=== PATIENT | female | born 1975 | race Caucasian/White ===

== ENCOUNTER 2022-04-04 15:32 | Outpatient (CLI) | payer OTHER, SELFPAY | END 2022-04-04 15:33 | disposition home or self-care (01) | LOC: NFLDREF 15:33 | PROVIDERS: PCP Family Medicine; Visit Provider Family Medicine | DX: E03.9 Hypothyroidism, unspecified (principal) | CPT/HCPCS: 84443 ==

== ENCOUNTER 2022-04-11 16:06 | Outpatient (CLI) | payer OTHER, SELFPAY ==
[2022-04-11 17:47] LABS: Vitamin D 25 Hydroxy* 20 ng/mL (30-80)
[2022-04-11 18:23] LABS: Vitamin B12* > 1000 pg/mL (243-894)
== END 2022-04-11 16:07 | disposition home or self-care (01) ==
PROVIDERS: PCP Family Medicine; Visit Provider Family Medicine
DX: R79.89 Other specified abnormal findings of blood chemistry (principal); E55.9 Vitamin D deficiency, unspecified; E03.9 Hypothyroidism, unspecified; I10 Essential (primary) hypertension; E78.5 Hyperlipidemia, unspecified; E11.9 Type 2 diabetes mellitus without complications
CPT/HCPCS: 82306; 82607

== ENCOUNTER 2022-05-17 09:07 | Outpatient (CLI) | payer OTHER, SELFPAY | END 2022-05-17 09:08 | disposition home or self-care (01) | PROVIDERS: PCP Family Medicine; Visit Provider Obstetrics & Gynecology | DX: Z01.419 Encounter for gynecological examination (general) (routine) without abnormal findings (principal); E55.9 Vitamin D deficiency, unspecified; I10 Essential (primary) hypertension; E78.5 Hyperlipidemia, unspecified; E11.9 Type 2 diabetes mellitus without complications; E03.9 Hypothyroidism, unspecified; N93.9 Abnormal uterine and vaginal bleeding, unspecified; Z13.9 Encounter for screening, unspecified | CPT/HCPCS: 80053; 80061; 83001; 84443 ==

== ENCOUNTER 2022-05-21 15:48 | Outpatient (CLI) | payer OTHER, SELFPAY ==
--- NOTE | 2022-05-21 16:00 | CRLHL7_ITS ---
For Patients: As a result of the Century Cures Act, medical imaging exams and procedure reports are released immediately into your electronic medical record. You may view this report before your referring provider. If you have questions, please contact your health care provider. CLINICAL HISTORY: AUB TECHNIQUE: Real time, cohen scale images were acquired of the pelvis using a transabdominal and transvaginal approach. Color Doppler analysis was performed of the ovaries. FINDINGS: Uterus measures 8.2 x 3.9 x 4.8 centimeters endometrium measures 3 millimeters and is indistinct. Right fundal fibroid measuring 2.1 centimeter right uterine body fibroid measuring 1.6 centimeters. The right ovary measures 2.9 x 1.8 x 1.4 centimeters. The left ovary measures 4.9 x 4 x 4.7 centimeters. A 4.2 centimeter cyst in the left ovary normal blood flow present IMPRESSION: 1.3 millimeters slightly indistinct endometrial stripe. 2.Uterine fibroids. 3. Benign left ovarian cyst which does not require follow-up Dictated by Taylor Marks MD @ 05/22/2022 9:06:17 AM (Electronically Signed)
== END 2022-05-21 15:49 | disposition home or self-care (01) ==
PROVIDERS: PCP Family Medicine; Visit Provider Obstetrics & Gynecology
DX: N93.9 Abnormal uterine and vaginal bleeding, unspecified (principal); D25.9 Leiomyoma of uterus, unspecified; N83.202 Unspecified ovarian cyst, left side
CPT/HCPCS: 76830; 76856; T1013

== ENCOUNTER 2022-09-27 12:11 | Outpatient (CLI) | payer OTHER, SELFPAY ==
--- NOTE | 2022-09-27 13:38 | W.ANESCHARGE ---
Anesthesia Charges Start Date/Time Anesthesia Start Date: 09/27/22 Anesthesia Start Time: 13:20 Stop Date/Time Anesthesia Stop Date: 09/27/22 Anesthesia Stop Time: 13:40
== END 2022-09-27 12:12 | disposition home or self-care (01) ==
PROVIDERS: PCP Family Medicine; Visit Provider Internal Medicine
DX: Z12.11 Encounter for screening for malignant neoplasm of colon (principal)
CPT/HCPCS: 45378; 812; J2704

== ENCOUNTER 2022-12-27 10:44 | Outpatient (CLI) | payer OTHER, SELFPAY | END 2022-12-27 10:45 | disposition home or self-care (01) | LOC: NFLDREF 12-30 08:44 | PROVIDERS: PCP Family Medicine; Referring Provider Family Medicine; Visit Provider Family Medicine | DX: Z00.00 Encounter for general adult medical examination without abnormal findings (principal); E78.5 Hyperlipidemia, unspecified; E03.9 Hypothyroidism, unspecified; E87.6 Hypokalemia; E11.9 Type 2 diabetes mellitus without complications; I10 Essential (primary) hypertension | CPT/HCPCS: 80053; 80061; 82306; 82607; 84443 ==

== ENCOUNTER 2022-12-30 15:05 | Outpatient (CLI) | payer OTHER, SELFPAY | END 2022-12-30 15:06 | disposition home or self-care (01) | LOC: NFLDREF 15:06 | PROVIDERS: PCP Family Medicine; Visit Provider Family Medicine | DX: Z00.00 Encounter for general adult medical examination without abnormal findings (principal); E55.9 Vitamin D deficiency, unspecified; R74.8 Abnormal levels of other serum enzymes; R35.0 Frequency of micturition; E87.6 Hypokalemia | CPT/HCPCS: 84132; 87086; 87186 ==

== ENCOUNTER 2023-01-29 10:38 | Outpatient (CLI) | payer OTHER, SELFPAY | END 2023-01-29 10:39 | disposition home or self-care (01) | LOC: NFLDREF 01-30 10:15 | PROVIDERS: PCP Family Medicine; Referring Provider Family Medicine; Visit Provider Family Medicine | DX: R74.8 Abnormal levels of other serum enzymes (principal); R79.89 Other specified abnormal findings of blood chemistry | CPT/HCPCS: 82607; 84450; 84460 ==

== ENCOUNTER 2023-04-30 11:11 | Outpatient (CLI) | payer OTHER, SELFPAY | END 2023-04-30 11:12 | disposition home or self-care (01) | PROVIDERS: PCP Family Medicine; Visit Provider Family Medicine | DX: E75 Disorders of sphingolipid metabolism and other lipid storage disorders (principal); R53.1 Weakness; E55.9 Vitamin D deficiency, unspecified | CPT/HCPCS: 80048; 82306 ==

== ENCOUNTER 2023-09-02 14:50 | Outpatient (CLI) | payer OTHER, SELFPAY ==
--- OUTSIDE RECORDS SUMMARY | 2023-09-02 14:52 | XMS_ITS | Clinical Summary ---
Author Organization [facility] Address [place], [place] [address] Care Team Providers Care Frame Repairer Name Role Phone Pcp, No Primary Care Provider Unavailabl e Allergies No known active allergies Medications No known medications Active Problems Problem Noted Date Diagnosed Date Dysmenorrhea 09/17/2012 Mediastinal mass, recheck CT Oct 2012 2 Immunizations Name Administration Dates Next Due Influenza, IIV4 12/08/2015 Td, Preservative Free (age >= 7 Years) 8 Tdap 02/11/2012 Tuberculin (PPD) 03/27/2012 Family History Medical History Relation Name Comments Good Health Brother 9 Good Health Brother 10 Good Health Brother 11 Good Health Brother 12 Good Health Brother 13 Good Health Brother 14 Good Health Brother 15 Good Health Brother 16 Unknown Father he , not sure how or why Unknown Maternal Grandfather Unknown Maternal Grandmother Diabetes Mother Unknown Paternal Grandfather Unknown Paternal Grandmother Cancer Sister 3 pancreas Good Health Sister 4 Relation Name Status Comments Brother 1 Alive Brother 2 Alive Brother 3 Alive Brother 4 Alive Brother 5 Alive Brother 6 Alive Brother 7 Alive Brother 8 Alive Brother 9 Brother 10 Brother 11 Brother 12 Brother 13 Brother 14 Brother 15 Brother 16 Father Maternal Grandfather Maternal Grandmother Mother Alive Paternal Grandfather Paternal Grandmother Sister 1 Alive Sister 2 Alive Sister 3 Sister 4 Social History Tobacco Use Types Packs/Day Years Used Date Smoking Tobacco: Never Smokeless Tobacco: Never Tobacco Cessation:Counseling Given: Yes Alcohol Use Standard Drinks/Week Comments Yes 0 (1 standard drink = 0.6 oz pur e alcohol) rare PHQ-2 Answer Date Recorded PHQ-2 Score 0 04/26/2018 Sex and Gender Information Value Date Recorded Sex Assigned at Not on file Gender Identity Not on file Sexual Orientation Not on file Obstetrics History Para Term AB IAB SAB Ectopic Multiple Livin g Live Births 3 3 3 0 0 0 0 0 0 3 Date Outcome GA Total Labor Labor/2nd/3rd Weight Sex Type Anes PTL Krista A1 A5 Name Clin Term Term Term Last Filed Vital Signs Vital Sign Reading Time Taken Comments Blood Pressure 123/77 09/01/2017 8:23 AM CDT Pulse 69 09/01/2017 8:23 AM CDT Temperature 36.9 ??C (98.5 ??F) 08/22/2017 1:23 PM CD T Respiratory Rate 16 09/28/2011 1:28 PM CDT Oxygen Saturation 96% 09/01/2017 8:23 AM CDT Inhaled Oxygen Concentration - - Weight 81.6 kg (179 lb 12.8 oz) 09/01/2017 8:23 AM CDT Height 158 cm (5' 2.21) 09/01/2017 8:23 AM CDT Body Mass Index 32.67 09/01/2017 8:23 AM CDT Plan of Treatment Health Maintenance Due Date Last Done Comments Hepatitis C screening for age 18-79 05/21/1993 Depression screening for age 12+ 08/08/2018 08/08/2017, 12/08/2015 BMI (ht and wt on same day) for age 18+ 09/01/2018 09/01/2017, 08/22/2017, 08/18/2017, Additional history exists Colonoscopy through age 75 05/21/2020 Mammogram for age 45-75 05/21/2020 12/27/2015 Lipids for age 45-75 12/20/2020 12/21/2015, 11/20/2010, 07/26/2008 Tetanus booster 02/10/2022 02/11/2012, 06/02/2007 COVID-19 vaccine series ( season) 2022 Pap test for age 21-65 10/10/2023 , 10/09/2020, 12/21/2015, Additional history exists Influenza for age 9-49 10/26/2023 12/08/2015 HIV for age 15-65 Completed 06/30/2008 Tdap Completed 02/11/2012 Pneumococcal series for age 6-64 Aged Out No longer eligible based on patient's age to complete this topic Procedures Procedure Name Priority Date/Time Associated Diagnosis Comments IRRIGATION FOREMAN THIN PREP PAP SCREEN IMAGED Routine 10/09/2020 12:00 PM CDT XR MAMMO BILAT SCREEN FFDM (IA) Routine 12/27/2015 4:39 PM CDT Visit for screening mammogram LIPID PANEL W REFLEX MEASURED LDL Routine 12/21/2015 11:24 AM CDT Screening for lipid disorders ANTI HIV 1/2 Routine 06/30/2008 3:02 PM CDT Candidal Vaginitis from Last 3 Months or Most Recently Relevant to Health Maintenance Results * IRRIGATION FOREMAN THIN PREP PAP SCREEN IMAGED (10/09/2020 12:00 PM CDT) Case Report Gynecologic Cytology Report ? Case: [id number] ? Authorizing Provider: ??Vandana Duenas ??Collected: ? 10/09/2020 1200 ? M, MD ? Ordering Location: ? [facility] ?Received: ?10/11/2020 0819 ? First Screen: ?Baccam, Minie ? Rescreen: ?Nicole Mitchell ? Specimen: ?IRRIGATION FOREMAN ThinPrep Vial Screening, Cervical/Vaginal ? 10/25/2020 4:19 PM CDT [facility] INTERPRETATION/ RESULT NEGATIVE FOR INTRAEPITHELIAL LESION OR MALIGNANCY (NIL) (none) 10/25/2020 4:19 PM CDT [facility] IMEN ADEQUACY Satisfactory for evaluation Endocervical component present 10/25/2020 4:19 PM CDT [facility] HPV REQUEST HPV and PAP 10/25/2020 4:19 PM CDT [facility] Additional Information 10/25/2020 4:19 PM T [facility] Comment: Interpreted at [facility] - [address], [place] [address] Automated Review Successful 10/25/2020 4:19 PM T [facility] Comment:Specimen processed s uccessfully by automated caretaker device, ThinPrep Imaging System, [employer] ANCILLARY TESTING IRRIGATION FOREMAN HPV Ordered, Please see separate report 10/25/2020 4:19 PM CDT [facility] Note The pap test is a screening technique, not a diagnostic procedure. It is used primarily to screen for squamous cancers and precursor lesions. Published studies have shown that it is subject to both false negative and false positive results. The pap test should not be used as the sole means to diagnose or exclude pre-malignant and malignant lesions. 10/25/2020 4:19 PM CDT [facility] Other (Cervical/Vagina l) 10/09/2020 12:00 PM CDT 10/11/2020 8:19 AM CDT Vandana Duenas MD PATHOLOGY/ CYTOLOGY [facility] [address] [place] [address], [place] * XR MAMMO BILAT SCREEN FFDM (12/27/2015 4:39 PM CDT) Anatomical Region Laterality Modality BREASTS, Breast Left, Breast Right Bilateral Mammography Impressions 12/28/2015 12:17 PM CDT ??There is no radiographic evidence for malignancy. ??Recommend annual mammograms. A lay language report of this examination will be provided to the patient. MAMMOGRAM ASSESSMENT: ??ACR 2 Benign Narrative 12/28/2015 12:17 PM CDT XR MAMMO BILAT SCREEN FFDM [G0202.0] CLINICAL HISTORY: ??This is an asymptomatic 40 y.o. patient. INDICATION FOR EXAM: Mammogram Screening. TECHNIQUE: CC & MLO views were obtained. ??This digital study was evaluated with the assistance of Computer-Aided Detection. COMPARISON FILMS: This is a baseline study. FINDINGS: ??Mammographically, the breast tissue is heterogeneously dense, which could obscure detection of small masses. ??No suspicious masses or microcalcifications. ??Intramammary lymph node within both breasts. Lorena ARANDA MAMMO * (ABNORMAL) LIPID PANEL W REFLEX MEASURED LDL (12/21/2015 11:24 AM CDT) CHOLESTEROL,TOTAL 238(H) 100 - 199 mg/dL 12/21/2015 12:19 PM CDT [facility] TRIGLYCERIDES 110 <150 mg/dL 12/21/2015 12:19 PM CDT [facility] HDL CHOLESTEROL 50 >40 mg/dL 10/27/201 6 12:19 PM CDT [facility] NON-HDL CHOLESTEROL 188(H) <145 mg/dl 12/21/2015 12:19 PM CDT [facility] CHOL/HDL RATIO 4.76(H) <4.50 12/21/2015 12:19 PM CDT [facility] LDL CHOLESTEROL 166(H) <=130 mg/dL 12/21/2015 12:19 PM CDT [facility] PATIENT STATUS NOT GIVEN 12/21/2015 12:19 PM CDT [facility] Blood BLOOD SPECIMEN / Unknown Venipuncture / Unknown 12/21/2015 11:24 AM CDT 12/21/2015 11:24 AM CDT Lorena Soliz PA CHEMISTRY [facility] [address] [place] [address], * ANTI HIV 1/2 (06/30/2008 3:02 PM CDT) ANTI HIV 1/2 Non-reacti ve [facility] Blood specimen (specimen) BLOOD SPECIMEN / Unknown 06/30/2008 3:02 PM CDT 06/30/2008 2:46 PM CDT Ngozi Ladd VP BUSINESS DEVELOPMENT SEND OUTS [facility] [place]NAL ZIP [id number] [place] [id number] from Last 3 Months or Most Recently Relevant to Health Maintenance Advance Directives * Full Code (Latest Code Status on File) Date Activated Date Inactivated Comments 09/12/2011 4:18 PM 09/13/2011 2:44 PM * Full Code Date Activated Date Inactivated Comments 09/12/2011 8:24 AM 09/12/2011 4:18 PM Care Teams Frame Repairer Relationship Specialty Start Date End Date Pcp, No . PCP - General 04/02/18
== END 2023-09-02 14:51 | disposition home or self-care (01) ==
PROVIDERS: PCP Family Medicine; Visit Provider Family Medicine
DX: E87.6 Hypokalemia (principal); R79.89 Other specified abnormal findings of blood chemistry; E55.9 Vitamin D deficiency, unspecified; E11.9 Type 2 diabetes mellitus without complications; E66.9 Obesity, unspecified; I10 Essential (primary) hypertension; E78.5 Hyperlipidemia, unspecified
CPT/HCPCS: 80048; 84450; 84460

== ENCOUNTER 2024-02-02 11:50 | Outpatient (CLI) | payer OTHER, SELFPAY | END 2024-02-02 11:51 | disposition home or self-care (01) | LOC: NFLDREF 02-05 03:45 | PROVIDERS: PCP Family Medicine; Referring Provider Family Medicine; Visit Provider Family Medicine | DX: E78.5 Hyperlipidemia, unspecified (principal); R73.03 Prediabetes; E55.9 Vitamin D deficiency, unspecified; E03.9 Hypothyroidism, unspecified; R53.83 Other fatigue | CPT/HCPCS: 80053; 80061; 82306; 84439; 84443 ==

== ENCOUNTER 2024-03-29 08:40 | Emergency (ER) | payer OTHER, SELFPAY ==
--- OUTSIDE RECORDS SUMMARY | 2024-03-29 08:45 | XMS_ITS | Referral Summary ---
Author Organization [facility] Address [facility] [place] [address] Care Team Providers Care Illuminator Name Role Phone None, Md Primary Care Provider Unavailabl e Allergies No known active allergies Medications acetaminophen (TYLENOL) 500 mg oral tablet Take 2 tablets (1,000 mg) by mouth every 6 (six) hours. 30 tablet 11/28/2020 11:24 AM CDT 11/28/2020 Active enoxaparin (LOVENOX) 40 mg/0.4 mL SubQ injection Inject 0.4 mL (40 mg) under the skin every 24 (twenty-four) hours. 21 Syringe 11/28/2020 11:24 AM CDT 11/29/2020 Active oxyCODONE, immediate release, (ROXICODONE) 5 mg oral tablet Take 1 tablet (5 mg) by mouth every four (4) to six (6) hours as needed. 20 tablet 11/28/2020 11:24 AM CDT 11/28/2020 Active ondansetron (ZOFRAN) 4 mg oral ODT Dissolve 1 tablet (4 mg) in mouth every 8 (eight) hours as needed for nausea. 10 tablet 11/28/2020 11:24 AM CDT 11/28/2020 Active polyethylene glycol (MIRALAX) 17 gram oral packet Take 17 g by mouth once daily. Mix each dose in 4-8 ounces of liquid as directed. 0 11/29/2020 Active senna-docusate (SENNA-S) 8.6-50 mg oral tablet Take 1-2 tablets by mouth twice a day. 20 tablet 11/28/2020 11:24 AM CDT 11/28/2020 Active Active Problems Problem Noted Date Diagnosed Date Fall down stairs 11/27/2020 UTI (urinary tract infection) 11/27/2020 Hypokalemia 11/27/2020 Displaced fracture of latera l condyle of left femur, initial encounter for closed fracture 11/26/2020 Dysmenorrhea 09/17/2012 Mediastinal mass 12/05/2011 Social History Tobacco Use Types Packs/Day Years Used Date Smoking Tobacco: Never Alcohol Use Standard Drinks/Week Comments Not Currently 0 (1 standard drink = 0.6 oz pur e alcohol) Comments Unknown Sex and Gender Information Value Date Recorded Sex Assigned at Not on file Legal Sex Female 1:11 PM CDT Gender Identity Not on file Sexual Orientation Not on file Last Filed Vital Signs Vital Sign Reading Time Taken Comments Blood Pressure 119/57 11/28/2020 2:26 PM CDT Pulse 75 11/28/2020 2:26 PM CDT Temperature 36.9 C (98.5 F) 11/28/2020 2:26 PM CDT Respiratory Rate 18 11/28/2020 2:26 PM CDT Oxygen Saturation 96% 11/28/2020 2:26 PM CDT Inhaled Oxygen Concentration - - Weight 83.9 kg (185 lb) 11/27/2020 12:53 PM CDT Height 160 cm (5' 3) 11/27/2020 12:53 PM CDT Body Mass Index 32.77 11/27/2020 12:53 PM CDT Plan of Treatment Not on file Medical Devices Implanted Type Area Japanese Interpreter Device Identifier Shelf Expiration Date Model / Serial / Lot Pltsynt-Clvr 02/27/68/6h 241.361 - [id number] Implanted:Qty : 1 on 11/27/2020 at [facility] Plate Left: Femur Synthes 241.361 / / Scr Syn Crtx S/T3.5/38 204.838 - [id number] Implanted:Qty : 2 on 11/27/2020 at [facility] Screw/Anc hor Left: Femur Synthes 204.838 / / Scr Evos Mini Bn 18mm 2.4mm - [id number] Implanted:Qty : 1 on 11/27/2020 by Ngozi Cotto MD at [facility] Screw/Anc hor Left: Femur [employer] [id number] / / Scr Evos Mini Bn 26mm 2.4mm - [id number] Implanted:Qty : 2 on 11/27/2020 by Ngozi Cotto MD at [facility] Screw/Anc hor Left: Femur [employer] [id number] / / Scr Evos Mini Bn 60mm 2.4mm - [id number] Implanted:Qty : 1 on 11/27/2020 by Ngozi Cotto MD at [facility] Screw/Anc hor Left: Femur [employer] [id number] / / Scr Evos Bn 46mm 2.7mm T8 Drvr - [id number] Implanted:Qty : 2 on 11/27/2020 by Ngozi Cotto MD at [facility] Screw/Anc hor Left: Femur [employer] [id number] / / Scr Evos Mini Bn 65mm 2.4mm - [id number] Implanted:Qty : 1 on 11/27/2020 by Ngozi Cotto MD at [facility] Screw/Anc hor Left: Femur [employer] [id number] / / Scrsynlckstdr v3.5/20 212.106 - [id number] Implanted:Qty : 1 on 11/27/2020 at [facility] Screw/Anc hor Left: Femur [employer]ynthes 212.106 / / Evos 2.4mm Flex Plate 8 Hole Implanted:Qty : 1 on 11/27/2020 by Ngozi Cotto MD at [facility] Left: Femur [employer] [id number] / / Explanted Type Area Japanese Interpreter Device Identifier Shelf Expiration Date Model / Serial / Lot Plt Evos Mini Bn 70x7.5x1.4mm - [id number] Implanted:Ngozi Gaines MD (Quantity not on file) Explanted:Qty : 1 on 11/27/2020 by Ngozi Cotto MD at [facility] Plate Left: Femur [employer] [id number] / / Scr Evos Mini Bn 75mm 2.4mm - [id number] Implanted:Ngozi Gaines MD (Quantity not on file) Explanted:Qty : 1 on 11/27/2020 by Ngozi Cotto MD at [facility] Screw/Anc hor Left: Femur [employer] [id number] / / Insurance [facility] Advance Directives For more information, please contact: [phone] * Full Code (Latest Code Status on File) Date Activated Date Inactivated Comments 11/26/2020 9:08 PM 11/29/2020 2:19 AM Question Answer Comments How was code status determined? Physician Radha gee Care Teams Illuminator Relationship Specialty Start Date End Date Md Yash PCP - General 11/26/20
--- OUTSIDE RECORDS SUMMARY | 2024-03-29 08:45 | XMS_ITS | Clinical Summary ---
Author Organization [facility] Address [address] [place] [id number] Care Team Providers Care Network Announcer Name Role Phone None, Md Primary Care [...] 11/27/2020 12:53 PM CDT Plan of Treatment Health Maintenance Due Date Last Done Comments Colonoscopy 1975 Hepatitis C Screening 1975 Lipid Screening 1975 Mammogram Screening 1975 Pap Smear 1975 Anxiety Screening (LURDES-2) 05/21/1976 Depression Assessment (PHQ-2) 05/21/1976 Adult Tetanus Booster 02/10/2022 02/11/2012 COVID-19 Vaccine ( - 2023-2 5 season) 2023 Influenza Vaccine (#1) 2023 12/08/2015 RSV Vaccines (1 - 1-dose 75+ series) 05/21/2050 Pneumococcal Vaccine Aged Out No long er eligible based on patient's age to complete this topic Medical Devices Implanted Type Area Supervisory Air Intercept Controller Device Identifier Shelf Expiration Date Model / Serial / Lot Pltsynt-Clvr 1/3/69/6h 241.361 - [id number] Implanted:Qty : 1 on 11/27/2020 at [facility] Plate Left: Femur [employer]ynthes 241.361 / / Scr Syn Crtx S/T3.5/38 204.838 - [id number] Implanted:Qty : 2 on 11/27/2020 at [facility] Screw/Anc hor Left: Femur [employer]ynthe[employer] 204.838 / / Scr Evos Mini Bn 18mm 2.4mm - [id number] Implanted:Qty : 1 on 11/27/2020 by Ngozi Cotto MD at [facility] Screw/Anc hor Left: Femur [employer] [id number] / / Scr Evos Mini Bn 26mm 2.4mm - [id number] Implanted:Qty : 2 on 11/27/2020 by Ngozi Cotto MD at [facility] Screw/Anc hor Left: Femur [employer] [id number] / / Scr Evos Mini Bn 60mm 2.4mm - [id number] Implanted:Qty : 1 on 11/27/2020 by Ngozi Cotto MD at [facility] Screw/Anc hor Left: Femur [employer] [id number] / / Scr Evos Bn 46mm 2.7mm T8 Drvr - [id number] Implanted:Qty : 2 on 11/27/2020 by Ngozi Cotto MD at [facility] Screw/Anc hor Left: Femur [employer] [id number] / / Scr Evos Mini Bn 65mm 2.4mm - [id number] Implanted:Qty : 1 on 11/27/2020 by Ngozi Cotto MD at [facility] Screw/Anc hor Left: Femur [employer] [id number] / / Scrsynlckstdr v3.5/20 212.106 - [id number] Implanted:Qty : 1 on 11/27/2020 at [facility] Screw/Anc hor Left: Femur [employer] 212.106 / / Evos 2.4mm Flex Plate 8 Hole Implanted:Qty : 1 on 11/27/2020 by Ngozi Cotto MD at [facility] Left: Femur [employer] [id number] / / Explanted Type Area Supervisory Air Intercept Controller Device Identifier Shelf Expiration Date Model / Serial / Lot Plt Evos Mini Bn 70x7.5x1.4mm - [id number] Implanted:Ngozi Gaines MD (Quantity not on file) Explanted:Qty : 1 on 11/27/2020 by Ngozi Cotto MD at [facility] Plate Left: Femur [employer] [id number] / / Scr Evos Mini Bn 75mm 2.4mm - [id number] Implanted:Ngozi Gaines MD (Quantity not on file) Explanted:Qty : 1 on 11/27/2020 by Ngozi Cotto MD at [facility] Screw/Anc hor Left: Femur [employer] [id number] / / Insurance [facility] Advance Directives For more information, please contact: [phone] * Full Code (Latest Code Status on File) Date Activated Date Inactivated Comments 11/26/2020 9:08 PM 11/29/2020 2:19 AM Question Answer Comments How was code status determined? Physician Radha upd Care Teams Network Announcer Relationship Specialty Start Date End Date None, PCP - General 11/26/20
--- OUTSIDE RECORDS SUMMARY | 2024-03-29 08:45 | XMS_ITS | Clinical Summary ---
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 Not on file Not on file Not on file Obstetrics History Para Term [...] 69 09/01/2017 8:23 AM CDT Temperature 36.9 C (98.5 F) 08/22/2017 1:23 PM CDT Respiratory Rate 16 09/28/2011 1:28 PM CDT [...] 11/20/2010, 07/26/2008 Tetanus booster 02/10/2022 02/11/2012, 06/02/2007 Pap test for age 21-65 10/10/2023 , 10/09/2020, 12/21/2015, Additional history exists COVID-19 vaccine series (2023- season) 2023 Influenza for age 9-49 10/26/2023 12/08/2015 HIV for age 15-65 Completed 06/30/2008 Tdap Completed 02/11/2012 Pneumococcal series for age 6-49 Aged Out No longer eligible based on patient's age to complete this topic Procedures Procedure Name Priority Date/Time Associated Diagnosis Comments BIOPROCESS ENGINEER THIN PREP PAP SCREEN IMAGED Routine 10/09/2020 12:00 PM CDT XR MAMMO BILAT SCREEN FFDM (IA) Routine 12/27/2015 4:39 PM CDT Visit for screening mammogram LIPID PANEL W REFLEX MEASURED LDL Routine 12/21/2015 11:24 AM CDT Screening for lipid disorders ANTI HIV 1/2 Routine 06/30/2008 3:02 PM CDT Candidal Vaginitis from Last 3 Months or Most Recently Relevant to Health Maintenance Results * BIOPROCESS ENGINEER THIN PREP PAP SCREEN IMAGED (10/09/2020 12:00 PM CDT) Case Report Gynecologic Cytology Report Case: [id number] Authorizing Provider: Vandana Duenas Collected: 10/09/2020 1200 MMD Ordering Location: [facility] Received: 10/11/2020 0819 First Screen: Baccam, Minie Rescreen: Nicole Mitchell Specimen: BIOPROCESS ENGINEER ThinPrep Vial Screening, Cervical/Vaginal 10/25/2020 4:19 PM CDT [facility] ENTRAL LABORATORY INTERPRETATION/ RESULT NEGATIVE FOR INTRAEPITHELIAL LESION OR MALIGNANCY (NIL) (none) 10/25/2020 4:19 PM CDT [facility]-C ENTRAL LABORATORY IMEN ADEQUACY Satisfactory for evaluation Endocervical component present 10/25/2020 4:19 PM [facility]T [facility] HPV REQUEST HPV and PAP 10/25/2020 4:19 PM CDT [facility] Additional Information 10/25/2020 4:19 PM CDT [facility] Comment: Interpreted at [email or web address], Central Laboratory - [address], [place] [address] Automated Review Successful 10/25/2020 4:19 PM CDT [facility]OR[facility]- ENTRAL LABORATORY Comment:Specimen processed s uccessfully by automated neck cutter device, ThinPrep Imaging System, [employer] ANCILLARY TESTING BIOPROCESS ENGINEER HPV Ordered, Please see separate report 10/25/2020 4:19 PM CDT [facility]- ENTRSD LABORATORY Note The pap test is a [...] and malignant lesions. 10/25/2020 4:19 PM CDT [facility] ENTRSD LABORATORY Other (Cervical/Vagina l) 10/09/2020 12:00 PM CDT 10/11/2020 8:19 AM CDT us Vandana Duenas MD PATHOLOGY/CYTOLOGY Final Result [facility] [address] [place] [address], [place] * XR MAMMO BILAT SCREEN FFDM (12/27/2015 4:39 PM CDT) Anatomical Region Laterality Modality BREASTS, Breast Left, Breast Right Bilateral Mammography Impressions 12/28/2015 12:17 PM CDT There is no radiographic evidence for malignancy. Recommend annual mammograms. A lay language report of this examination will be provided to the patient. MAMMOGRAM ASSESSMENT: ACR 2 Benign Narrative 12/28/2015 12:17 PM CDT XR MAMMO BILAT SCREEN FFDM [G0202.0] CLINICAL HISTORY: This is an asymptomatic 40 y.o. patient. INDICATION FOR EXAM: Mammogram Screening. TECHNIQUE: CC & MLO views were obtained. This digital study was evaluated with the assistance of Computer-Aided Detection. COMPARISON FILMS: This is a baseline study. FINDINGS: Mammographically, the breast tissue is heterogeneously dense, which could obscure detection of small masses. No suspicious masses or microcalcifications. Intramammary lymph node within both breasts. Lorena ARANDA MAMMO Final Resu lt * (ABNORMAL) LIPID PANEL W REFLEX MEASURED LDL (12/21/2015 11:24 AM CDT) CHOLESTEROL,TOTAL 238(H) 100 - 199 mg/dL 12/21/2015 12:19 PM CDT [facility] TRIGLYCERIDES 110 <150 mg/dL 12/21/2015 12:19 PM CDT [facility] HDL CHOLESTEROL 50 >40 mg/dL 6 12:19 PM CDT [facility] NON-HDL CHOLESTEROL 188(H) <145 mg/dl 12/21/2015 12:19 PM CDT [facility] CHOL/HDL RATIO 4.76(H) <4.50 12/21/2015 12:19 PM CDT [facility] LDL CHOLESTEROL 166(H) <=130 mg/dL 12/21/2015 12:19 PM CDT [facility] PATIENT STATUS NOT GIVEN 12/21/2015 12:19 PM CDT [facility] Blood BLOOD SPECIMEN / Unknown Venipuncture / Unknown 12/21/2015 11:24 AM CDT 12/21/2015 11:24 AM CDT Lorena ARANDA CHEMISTRY Final Resu lt [facility] [address] [place] [address], [place] [phone] * ANTI HIV 1/2 (06/30/2008 3:02 PM CDT) ANTI HIV 1/2 Non-reacti ve [facility] Blood specimen (specimen) BLOOD SPECIMEN / Unknown 06/30/2008 3:02 PM CDT 06/30/2008 2:46 PM CDT Ngozi Ladd MANAGER OF REVENUE SEND OUTS Final R esult [facility] LAB[facility] INTERNAL ZIP [id number] [address] from Last 3 Months or Most Recently Relevant to Health Maintenance Advance Directives * Full Code (Latest Code Status on File) Date Activated Date Inactivated Comments 09/12/2011 4:18 PM 09/13/2011 2:44 PM * Full Code Date Activated Date Inactivated Comments 09/12/2011 8:24 AM 09/12/2011 4:18 PM Care Teams Hair Cutter Relationship Specialty Start Date End Date Pcp, No . PCP - General 04/02/18
[2024-03-29 08:46] VITALS: BP 131/85; PULSE 75; RESP 18; TEMP 36.9; O2SAT 97; BMI 36.9
--- NOTE | 2024-03-29 09:06 | CRLHL7_ITS ---
For Patients: As a result of the Cures Act, medical imaging exams and procedure reports are released immediately into your electronic medical record. You may view this report before your referring provider. If you have questions, please contact your health care provider. Indication: FALL AND PAIN Technique: Three views of the right hand. Comparison: None. Findings: No acute displaced fracture or malalignment. Mild degenerative changes of the radiocarpal joint. Impression: No acute displaced fracture or malalignment. Dictated by Brian Coker MD @ 03/29/2024 10:02:48 AM (Electronically Signed)
--- NOTE | 2024-03-29 09:06 | CRLHL7_ITS ---
For Patients: As a result of the Cures Act, medical imaging exams and procedure reports are released immediately into your electronic medical record. You may view this report before your referring provider. If you have questions, please contact your health care provider. Indication: FALL AND KNEE PAIN Technique: Three views of the left knee. Comparison: 11/26/2020. Findings: Postsurgical changes from open reduction and internal fixation of the distal femur. No acute fracture or hardware complication. Moderate degenerative changes of the patellofemoral compartment. Moderate knee joint effusion. Impression: Postsurgical changes from open reduction and internal fixation of the distal femur. No acute fracture or hardware complication. Moderate degenerative changes of the patellofemoral compartment. Moderate knee joint effusion. Dictated by Brian Coker MD @ 03/29/2024 10:04:44 AM (Electronically Signed)
--- NOTE | 2024-03-29 09:06 | CRLHL7_ITS ---
For Patients: As a result of the Cures Act, medical imaging exams and procedure reports are released immediately into your electronic medical record. You may view this report before your referring provider. If you have questions, please contact your health care provider. Indication: Fall on outstretched hand Technique: Right wrist 3 view Comparison: None Findings: Bones: No acute fracture or dislocation. Positive ulnar variance. Lucent lesion with sclerotic rim in the scaphoid. Joint spaces: Unremarkable. Soft tissues: Unremarkable. Impression: No acute fracture or dislocation. 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 Positive ulnar variance, which increases risk for ulnar impaction syndrome. Dictated by Vicenta Vilchis MD @ 03/29/2024 10:01:50 AM (Electronically Signed)
--- NOTE | 2024-03-29 09:06 | CRLHL7_ITS ---
For Patients: As a result of the Century Cures Act, medical imaging exams and procedure reports are released immediately into your electronic medical record. You may view this report before your referring provider. If you have questions, please contact your health care provider. Indication: Right ankle pain. Technique: Right ankle 3 views. Comparison: None. Findings: Bones: Small ossific fragments at the lateral malleolus. Ankle mortise is congruent on these nonweightbearing radiographs. Plantar calcaneal enthesophyte. Joint spaces: Joint spaces are well maintained. No degenerative changes. Soft tissues: Moderate soft tissue swelling along the lateral malleolus. Impression: Avulsion fracture the lateral malleolus (Hood A) with moderate soft tissue swelling. Dictated by Vicenta Vilchis MD @ 03/29/2024 10:03:57 AM (Electronically Signed)
--- OUTSIDE RECORDS SUMMARY | 2024-03-29 09:16 | XMS_ITS | Referral Summary ---
Author Organization [facility] Address [facility] [place] [address] Care Team Providers Care Software Client Architect Name Role Phone None, Md Primary Care [...] on file Medical Devices Implanted Type Area Loading Machine Operator Helper Device Identifier Shelf Expiration Date Model / Serial / Lot Pltsynt-Clvr 02/27/68/6h 241.361 - [id number] Implanted:Qty : 1 on 11/27/2020 at [facility] Plate Left: Femur [employer]ynthes 241.361 / / Scr Syn Crtx S/T3.5/38 204.838 - [id number] Implanted:Qty : 2 on 11/27/2020 at [facility] Screw/Anc hor Left: Femur Synthes 204.838 / / Scr Evos Mini Bn 18mm 2.4mm - [id number] Implanted:Qty : 1 on 11/27/2020 by Ngozi Cotto MD at [facility] Screw/Anc hor Left: Femur [employer] [id number] / / Scr Evos Mini Bn 26mm 2.4mm - [id number] Implanted:Qty : 2 on 11/27/2020 by Ngozi Cotto MD at [facility] Screw/Anc hor Left: Femur [employer] [id number] / / Scr Evos Mini Bn 60mm 2.4mm - [id number] Implanted:Qty : 1 on 11/27/2020 by Ngozi Cotto MD at [facility] Screw/Anc hor Left: Femur [employer] [id number] / / Scr Evos Bn 46mm 2.7mm T8 Drvr - [id number] Implanted:Qty : 2 on 11/27/2020 by Ngozi Cotto MD at [facility] Screw/Anc hor Left: Femur [employer] [id number] / / Scr Evos Mini Bn 65mm 2.4mm - [id number] Implanted:Qty : 1 on 11/27/2020 by Ngozi Cotto MD at [facility] Screw/Anc hor Left: Femur [employer] [id number] / / Scrsynlckstdr v3.5/20 212.106 - [id number] Implanted:Qty : 1 on 11/27/2020 at [facility] Screw/Anc hor Left: Femur [employer]ynthes 212.106 / / Evos 2.4mm Flex Plate 8 Hole Implanted:Qty : 1 on 11/27/2020 by Ngozi Cotto MD at [facility] Left: Femur [employer] [id number] / / Explanted Type Area Loading Machine Operator Helper Device Identifier Shelf Expiration Date Model / Serial / Lot Plt Evos Mini Bn 70x7.5x1.4mm - [id number] Implanted:Ngozi Gaines MD (Quantity not on file) Explanted:Qty : 1 on 11/27/2020 by Ngozi Cotto MD at [facility] Plate Left: Femur [employer] [id number] / / Scr Evos Mini Bn 75mm 2.4mm - [id number] Implanted:Ngozi Gaines MD (Quantity not on file) Explanted:Qty : 1 on 11/27/2020 by Ngozi Cotto MD at [facility] Screw/Anc hor Left: Femur [employer] [id number] / / Insurance [facility] Advance Directives For more information, please contact: [phone] * Full Code (Latest Code Status on File) Date Activated Date Inactivated Comments 11/26/2020 9:08 PM 11/29/2020 2:19 AM Question Answer Comments How was code status determined? Physician Radha gee Care Teams Software Client Architect Relationship Specialty Start Date End Date Md Yash PCP - General 11/26/20
--- OUTSIDE RECORDS SUMMARY | 2024-03-29 09:16 | XMS_ITS | Clinical Summary ---
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 Gender Identity Not on file Sexual Orientation [...] Procedure Name Priority Date/Time Associated Diagnosis Comments TRADE RECRUITER THIN PREP PAP SCREEN IMAGED Routine 10/09/2020 12:00 PM CDT XR MAMMO BILAT SCREEN FFDM (IA) Routine 12/27/2015 4:39 PM CDT Visit for screening mammogram LIPID PANEL W REFLEX MEASURED LDL Routine 12/21/2015 11:24 AM CDT Screening for lipid disorders ANTI HIV 1/2 Routine 06/30/2008 3:02 PM CDT Candidal Vaginitis from Last 3 Months or Most Recently Relevant to Health Maintenance Results * TRADE RECRUITER THIN PREP PAP SCREEN IMAGED (10/09/2020 12:00 PM CDT) Case Report Gynecologic Cytology Report Case: [id number] Authorizing Provider: Vandana Duenas Collected: 10/09/2020 1200 MMD Ordering Location[facility] Received: 10/11/2020 0819 First Screen: Baccam, Minie Rescreen: Nicole Mitchell Specimen: TRADE RECRUITER ThinPrep Vial Screening, Cervical/Vaginal 10/25/2020 4:19 PM CDT [facility] LABORAT[facility]-C ENTRAL LABORATORY INTERPRETATION/ RESULT NEGATIVE FOR INTRAEPITHELIAL LESION OR MALIGNANCY (NIL) (none) 10/25/2020 4:19 PM CDT [email or web address]-C ENTRAL LABORATORY IMEN ADEQUACY Satisfactory for evaluation Endocervical component present 10/25/2020 4:19 PM CDT [facility] HPV REQUEST HPV and PAP 10/25/2020 4:19 PM CDT [facility] Additional Information 10/25/2020 4:19 PM CDT [facility] LAB[facility]AT[facility] Comment: Interpreted at [employer], Central Laboratory - [address], [place] [address] Automated Review Successful 10/25/2020 4:19 PM CDT [email or web address]ORAT[facility]- ENTRAL LABORATORY Comment:Specimen processed s uccessfully by automated indexer device, ThinPrep Imaging System, [employer] ANCILLARY TESTING TRADE RECRUITER HPV Ordered, Please see separate report 10/25/2020 4:19 PM CDT [facility]- ENTRNY LABORATORY Note The pap test is a [...] and malignant lesions. 10/25/2020 4:19 PM CDT [facility] ENTR[facility] LABORATORY Other (Cervical/Vagina l) 10/09/2020 12:00 PM CDT 10/11/2020 8:19 AM CDT us Vandana Duenas MD PATHOLOGY/CYTOLOGY Final Result [facility] [address] [place] [address], [place] * XR MAMMO BILAT SCREEN FFDM [...] - 199 mg/dL 12/21/2015 12:19 PM CDT [facility] TRIGLYCERIDES 110 <150 mg/dL 12/21/2015 12:19 PM CDT [facility] HDL CHOLESTEROL 50 >40 mg/dL 6 12:19 PM CDT [facility] NON-HDL CHOLESTEROL 188(H) <145 mg/dl 12/21/2015 12:19 PM CDT [facility] CHOL/HDL RATIO 4.76(H) <4.50 12/21/2015 12:19 PM CDT [facility] LDL CHOLESTEROL 166(H) <=130 mg/dL 12/21/2015 12:19 PM CDT [facility] PATIENT STATUS NOT GIVEN 12/21/2015 12:19 PM CDT [facility] Blood BLOOD SPECIMEN / Unknown Venipuncture / Unknown 12/21/2015 11:24 AM CDT 12/21/2015 11:24 AM CDT Lore[facility] ARANDA CHEMISTRY Final Resu lt [facility] [address] [place] [address], [place] [phone] * ANTI HIV 1/2 (06/30/2008 3:02 PM CDT) ANTI HIV 1/2 Non-reacti ve [facility] Blood specimen (specimen) BLOOD SPECIMEN / Unknown 06/30/2008 3:02 PM CDT 06/30/2008 2:46 PM CDT Ngozi Ladd TREASURY DIRECTOR SEND OUTS Final R esult [facility] LAB[facility]ORY INTERNAL ZIP [id number] [address] from Last 3 Months or Most Recently Relevant to Health Maintenance Advance Directives * Full Code (Latest Code Status on File) Date Activated Date Inactivated Comments 09/12/2011 4:18 PM 09/13/2011 2:44 PM * Full Code Date Activated Date Inactivated Comments 09/12/2011 8:24 AM 09/12/2011 4:18 PM Care Teams Logger Relationship Specialty Start Date End Date Pcp, No . PCP - General 04/02/18
--- OUTSIDE RECORDS SUMMARY | 2024-03-29 09:16 | XMS_ITS | Clinical Summary ---
Author Organization [facility] Address [address] [place] [address] Care Team Providers Care Playroom Attendant Name Role Phone None, Md Primary Care [...] this topic Medical Devices Implanted Type Area Motor Express Clerk Device Identifier Shelf Expiration Date Model / Serial / Lot Pltsynt-Clvr 1/3/69/6h 241.361 - [id number] Implanted:Qty : 1 on 11/27/2020 at [facility] Plate Left: Femur [employer] 241.361 / / Scr Syn Crtx S/T3.5/38 204.838 - [id number] Implanted:Qty : 2 on 11/27/2020 at [facility] Screw/Anc hor Left: Femur [employer] 204.838 / / Scr Evos Mini Bn 18mm 2.4mm - [id number] Implanted:Qty : 1 on 11/27/2020 by Ngozi Cotto MD at [facility] Screw/Anc hor Left: Femur [employer] [id number] / / Scr Evos Mini Bn 26mm 2.4mm - [id number] Implanted:Qty : 2 on 11/27/2020 by Ngozi Cotto MD at [facility] Screw/Anc hor Left: Femur [employer] [id number] / / Scr Evos Mini Bn 60mm 2.4mm - [id number] Implanted:Qty : 1 on 11/27/2020 by Ngozi Cotto MD at [facility] Screw/Anc hor Left: Femur [employer] [id number] / / Scr Evos Bn 46mm 2.7mm T8 Drvr - [id number] Implanted:Qty : 2 on 11/27/2020 by Ngozi Cotto MD at [facility] Screw/Anc hor Left: Femur [employer] [id number] / / Scr Evos Mini Bn 65mm 2.4mm - [id number] Implanted:Qty : 1 on 11/27/2020 by Ngozi Cotto MD at [facility] Screw/Anc hor Left: Femur [employer] [id number] / / Scrsynlckstdr v3.5/20 212.106 - [id number] Implanted:Qty : 1 on 11/27/2020 at [facility] Screw/Anc hor Left: Femur [employer] 212.106 / / Evos 2.4mm Flex Plate 8 Hole Implanted:Qty : 1 on 11/27/2020 by Ngozi Cotto MD at [facility] Left: Femur [employer] [id number] / / Explanted Type Area Motor Express Clerk Device Identifier Shelf Expiration Date Model / Serial / Lot Plt Evos Mini Bn 70x7.5x1.4mm - [id number] Implanted:Ngozi Gaines MD (Quantity not on file) Explanted:Qty : 1 on 11/27/2020 by Ngozi Cotto MD at [facility] Plate Left: Femur [employer] [id number] / / Scr Evos Mini Bn 75mm 2.4mm - [id number] Implanted:Ngozi Gaines MD (Quantity not on file) Explanted:Qty : 1 on 11/27/2020 by Ngozi Cotto MD at [facility] Screw/Anc hor Left: Femur [employer] [id number] / / Insurance [facility] Advance Directives For more information, please contact: [phone] * Full Code (Latest Code Status on File) Date Activated Date Inactivated Comments 11/26/2020 9:08 PM 11/29/2020 2:19 AM Question Answer Comments How was code status determined? Physician Radha upd Care Teams Playroom Attendant Relationship Specialty Start Date End Date None, PCP - General 11/26/20
--- NOTE | 2024-03-29 09:30 | ED.FALL ---
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 She is able to walk and bear weight although it is hurts the most seemingly on her right ankle. She has small abrasions over her knees bilaterally and her right hand over the 4th and 5th PIP joints. No loss of consciousness, no complaints of headache or neck pain. Presents here for evaluation did take some Tylenol this morning. Requesting a note for work. No numbness tingling or weakness noted, she does have a history of left knee previous surgery with screws in her left knee. She did tell the nurse that she was worried about a blood clot MD complaint: fall Severity: moderate Associated symptoms (after fall): denies Related Data Previous Rx's ?Medication ?Instructions ?Recorded Blood Glucose Meter #1 ea 04/30/23 Diabetic Test Strips #100 ea 04/30/23 lancets 28 gauge (CareTouch Safety #100 ea 04/30/23 Lancets) chlorthalidone 25 mg tablet 12.5 mg (1/2 x 25 mg) PO QDAY #45 02/04/24 tabs cholecalciferol (vitamin D3) 50 50 mcg PO QDAY #90 caps 02/04/24 mcg (2,000 unit) capsule ergocalciferol (vitamin D2) 1,250 1,250 mcg PO QWEEK #8 caps 02/04/24 mcg (50,000 unit) capsule potassium chloride 10 mEq 10 meq PO QDAY #90 tabs 02/04/24 tablet,extended release terbinafine HCl 250 mg tablet 250 mg PO QDAY #84 tabs 02/04/24 Allergies Allergy/AdvReac Type Severity Reaction Status Date / Time No Known Allergies Allergy Unknown Verified 02/04/24 07:26 Review of Systems Status of ROS: Reports: 10 or more systems reviewed and unremarkable except as noted in History and below [facility] Medical History Hx of diabetes mellitus ?Z86.39 - Personal history of other endocrine, nutritional and metabolic disease (ICD-10) Vitamin D deficiency ?E55.9 - Vitamin D deficiency, unspecified (ICD-10) Carpal tunnel syndrome of right wrist ?G56.01 - Carpal tunnel syndrome, right upper limb (ICD-10) Hypothyroidism ?E03.9 - Hypothyroidism, unspecified (ICD-10) Uterine leiomyoma ?D25.9 - Leiomyoma of uterus, unspecified (ICD-10) Hypertension ?I10 - Essential (primary) hypertension (ICD-10) Hyperlipidemia ?E78.5 - Hyperlipidemia, unspecified (ICD-10) History of hypokalemia ?Z86.39 - Personal history of other endocrine, nutritional and metabolic disease (ICD-10) Surgical History History of reversal of tubal ligation (2006) ?Z98.890 - Other specified postprocedural states (ICD-10) History of open reduction and internal fixation (ORIF) procedure (11/27/20) ?Z98.890 - Other specified postprocedural states (ICD-10) History of myomectomy (09/12/11) ?Z98.890 - Other specified postprocedural states (ICD-10) History of section (1993) ?Z98.891 - History of uterine scar from previous surgery (ICD-10) Social History What is your current living situation?: I presently have a place to live Problems where you live: no known problems In the past 12 months, utilities in danger of being shut off: no In past 12 months, lack of transportation kept you from medical appts, meetings, work, or getting things needed for daily living: no In the past 12 mos, have been you worried that your food would run out before you had money to buy more?: never true In the past 12 mos, the food you bought just didn't last and you didn't have money to buy more?: never true Smoking Status: Former smoker How often does anyone, including family, friends and others, physically hurt you: never How often does anyone, including family, friends and others, insult or talk down to you: never How often does anyone, including family, friends and others, threaten you with harm: never How often does anyone, including family, friends and others, scream or curse at you: never Exam Narrative: Exam Narrative: On examination she is in no apparent distress 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 Sensations normal pulses are normal in her right lower extremity, including her DP and posterior tibial anterior drawer test is negative, somewhat tender to palpation over the lateral malleolar region. She does seem to have a little bit of a firm endpoint. Wrist has full range of motion of her right hand, she has full range of motion of her fingers bilaterally with no rotational deformity small abrasions are noted over the PIP joints dorsally. Cap refills normal sensations normal. Her knees bilaterally a full range of motion from 0, to 100?, she has a little bit of swelling noted in on her left knee, this is an bruising noted, bilaterally. Left greater than right, ligaments seem intact bilaterally, ACL PCL lateral medial collateral popliteal fossa is her clean bilaterally, with no swelling masses, I do not detect a huge effusion, she does have mild abrasions over both of her kneecaps bilaterally. Hips have painless range of motion. 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 Recommend ice and elevation. The ankle fracture is discussed. I worry about a internal issue in the left knee with the effusion. Tyelenol for the discomfort. Vital Signs Vital signs: Initial Vital Signs Temperature 98.5 F 03/29/24 08:46 Temperature Source Temporal Artery Scan 03/29/24 08:46 Pulse Rate 75 03/29/24 08:46 Pulse Rhythm Regular 03/29/24 08:46 Respiratory Rate 18 03/29/24 08:46 Blood Pressure 131/85 03/29/24 08:46 Blood Pressure Mean 100 03/29/24 08:46 Blood Pressure Position Sitting 03/29/24 08:46 Pulse Oximetry 97 03/29/24 08:46 Oxygen Delivery Method Room Air 03/29/24 08:46 Vital Signs Temperature 98.5 F 03/29/24 08:46 Pulse Rate 75 03/29/24 08:46 Respiratory Rate 18 03/29/24 08:46 Blood Pressure 131/85 03/29/24 08:46 Pulse Oximetry 97 03/29/24 08:46 Oxygen Delivery Method Room Air 03/29/24 08:46 Temperature 98.5 F 03/29/24 08:46 Pulse Rate 75 03/29/24 08:46 Respiratory Rate 18 03/29/24 08:46 Blood Pressure 131/85 03/29/24 08:46 Pulse Oximetry 97 03/29/24 08:46 Oxygen Delivery Method Room Air 03/29/24 08:46 Medications Administered Medications: Discontinued Medications Generic Name Dose Route Start Last Admin Trade Name Freq PRN Reason Stop Dose Admin Ibuprofen 600 mg 03/29/24 09:06 03/29/24 09:51 Ibuprofen 200 Mg Tablet PO 03/29/24 09:07 600 mg ONCE ONE Administration MDM - Fall Medical Records Attestation: I reviewed the patient's medical records. Imaging Data Knee x-ray: Radiologist's impression: Patient: SEGUNDO ELLIOTT Facility:?[facility] Patient ID:?[id number] Site Patient ID:?[id number]. Site :?1975 Study:?XRay-Knee Right 3V-03/29/2024 10:04:16 AM Ordering Physician:?Antonia Mcneil Final Report: INDICATION: Posttraumatic pain. COMPARISON: None available. TECHNIQUE: Views: 3 FINDINGS: Mineralization: Normal. Alignment: Normal. Bones and Joints: No fracture is identified. Soft Tissues: No significant periarticular soft tissue swelling or joint effusion is identified. IMPRESSION: No acute traumatic injury is identified. Dictated by Juan Manuel Sow MD @ 03/29/2024 10:11:13 AM (Electronic Signature) Patient: SEGUNDO ELLIOTT Facility:?[facility] Patient ID:?[id number] Site Patient ID:?[id number]. Site :?1975 Study:?XRay-Knee Left -03/29/2024 9:45:40 AM Ordering Physician:Kerry Mcneil Final Report: Indication: FALL AND KNEE PAIN Technique: Three views of the left knee. Comparison: 11/26/2020. Findings: Postsurgical changes from open reduction and internal fixation of the distal femur. No acute fracture or hardware complication. Moderate degenerative changes of the patellofemoral compartment. Moderate knee joint effusion. Impression: Postsurgical changes from open reduction and internal fixation of the distal femur. No acute fracture or hardware complication. Moderate degenerative changes of the patellofemoral compartment. Moderate knee joint effusion. Dictated by Brian Coker MD @ 03/29/2024 10:04:44 AM (Electronic Signature) atient: SEGUNDO ELLIOTT Facility:?[facility] Patient ID:?[id number] Site Patient ID:?[id number]. Site :?1975 Study:?XRay-Extremity Right ANKLE-03/29/2024 9:45:13 AM Ordering Physician:Kerry Mcneil Final Report: Indication: Right ankle pain. Technique: Right ankle 3 views. Comparison: None. Findings: Bones: Small ossific fragments at the lateral malleolus. Ankle mortise is congruent on these nonweightbearing radiographs. Plantar calcaneal enthesophyte. Joint spaces: Joint spaces are well maintained. No degenerative changes. Soft tissues: Moderate soft tissue swelling along the lateral malleolus. Impression: Avulsion fracture the lateral malleolus (Hood A) with moderate soft tissue swelling. Dictated by Vicenta Vilchis MD @ 03/29/2024 10:03:57 AM (Electronic Signature) Patient: SEGUNDO ELLIOTT Facility:?[facility] Patient ID:?[id number] Site Patient ID:?[id number]. Site :?1975 Study:?XRay-Extremity Right HAND-03/29/2024 9:44:37 AM Ordering Physician:?Antonia Mcneil Final Report: Indication: FALL AND PAIN Technique: Three views of the right hand. Comparison: None. Findings: No acute displaced fracture or malalignment. Mild degenerative changes of the radiocarpal joint. Impression: No acute displaced fracture or malalignment. Dictated by Brian Coker MD @ 03/29/2024 10:02:48 AM (Electronic Signature) Patient: SEGUNDO ELLIOTT Facility:?[facility] Patient ID:?[id number] Site Patient ID:?[id number]. Site :?1975 Study:?XRay-Extremity Right WRIST-03/29/2024 9:44:10 AM Ordering Physician:Kerry Mcneil Final Report: Indication: Fall on outstretched hand Technique: Right wrist 3 view Comparison: None Findings: Bones: No acute fracture or dislocation. Positive ulnar variance. Lucent lesion with sclerotic rim in the scaphoid. Joint spaces: Unremarkable. Soft tissues: Unremarkable. Impression: No acute fracture or dislocation. 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 Positive ulnar variance, which increases risk for ulnar impaction syndrome. Dictated by Vicenta Vilchis MD @ 03/29/2024 10:01:50 AM (Electronic Signature) Discharge Plan Discharge Clinical Impression: Ankle fracture, lateral malleolus, closed, Abrasions of multiple sites, Effusion of left knee, Contusion of hand Patient Disposition: Home w/ Parent or Adult Additional Instructions: Follow up appointment is scheduled at the [facility] on 04/06/24 with a 10:00am appointment time. Please check in at 9:50am to complete paperwork. If you have any questions or need to reschedule, please call [phone]. [facility] [place] [address] [place] [address] Home rest, ice, bacitracin areas of abrasions, wear your cam walker all the time on your right ankle, follow-up with Orthopedics, off work until follow-up with Orthopedics. Activity Level: No strenuous activity Discharge Diet: Regular Prescriptions: No Action (DME) Blood Glucose Meter Misc See Rx Instructions .ROUTE .MEDSUPPLY Qty: 1 0RF Rx Instructions: As directed (DME) Diabetic Test Strips Misc See Rx Instructions .ROUTE .MEDSUPPLY Qty: 100 3RF Rx Instructions: bid prn (DME) lancets [CareTouch Safety Lancets] 28 gauge misc See Rx Instructions .ROUTE .MEDSUPPLY Qty: 100 3RF Rx Instructions: As directed chlorthalidone 25 mg tablet 12.5 mg PO QDAY Qty: 45 3RF potassium chloride 10 mEq tablet extended release 10 meq PO QDAY Qty: 90 3RF terbinafine HCl 250 mg tablet 250 mg PO QDAY Qty: 84 0RF cholecalciferol (vitamin D3) 50 mcg (2,000 unit) capsule 50 mcg PO QDAY Qty: 90 3RF ergocalciferol (vitamin D2) 1,250 mcg (50,000 unit) capsule 1,250 mcg PO QWEEK Qty: 8 0RF Follow Up/Referrals: Nilay Ruiz MD [Primary Care Provider] - Stand Alone Forms: [employer] Info Instructions
--- NOTE | 2024-03-29 09:50 | CRLHL7_ITS ---
For Patients: As a result of the Cures Act, medical imaging exams and procedure reports are released immediately into your electronic medical record. You may view this report before your referring provider. If you have questions, please contact your health care provider. INDICATION: Posttraumatic pain. COMPARISON: None available. TECHNIQUE: Views: 3 FINDINGS: Mineralization: Normal. Alignment: Normal. Bones and Joints: No fracture is identified. Soft Tissues: No significant periarticular soft tissue swelling or joint effusion is identified. IMPRESSION: No acute traumatic injury is identified. Dictated by Juan Manuel Sow MD @ 03/29/2024 10:11:13 AM (Electronically Signed)
[2024-03-29] MEDS: IBUPROFEN 200 MG TABLET 600 MG PO (09:51)
--- NOTE | 2024-03-29 11:00 | ED.NURSE ---
Bacitracin applied to right and left knee, and to right hand on knuckles.
== END 2024-03-29 11:00 | disposition home or self-care (01) ==
PROVIDERS: Emergency Provider Family Medicine; PCP Family Medicine
DX: M25.462 Effusion, left knee (principal); S60.221A Contusion of right hand, initial encounter; W01.0XXA Fall on same level from slipping, tripping and stumbling without subsequent striking against object, initial encounter; S82.64XA Nondisplaced fracture of lateral malleolus of right fibula, initial encounter for closed fracture
CPT/HCPCS: 73110; 73130; 73562; 73610; 99283; 99284; A9270

== ENCOUNTER 2024-04-14 13:35 | Outpatient (CLI) | payer OTHER, SELFPAY ==
--- NOTE | 2024-04-14 13:45 | MR_ITS ---
[address] [address] Phone:?[phone] Fax:?[phone] Referring Physician Information: Noah Saavedra M.D. [address] [facility] [address] Phone:?[phone] Fax:?[phone] Patient:Farshad Matthews D.O.B:?1975 Sex:?Female Phone:?[phone] [facility] MRN:?[id number] Exam Date:?04/14/2024 EXAM: MRI OF THE LEFT KNEE CLINICAL INFORMATION: The patient is a 48-year-old with left knee pain. Evaluate for medial meniscal tear. PRIOR SURGERY: The patient has a history of prior surgery to the region. COMPARISON STUDIES: Comparison is made to prior radiographs dated 03/29/2024. TECHNICAL INFORMATION: Imaging was performed on a high-field, 1.5 Chanel MR scanner. Axial proton-density and fat-suppressed T2 imaging was performed in addition to sagittal proton-density, sagittal fat-suppressed proton-density, and sagittal STIR imaging. Coronal proton-density and coronal STIR imaging was also performed. Pulse sequences were modified to reduce artifact arising from the patient's metallic implants. FINDINGS: Articular/Extraarticular collections: Effusion: Mild to moderate. Popliteal cyst: Moderate, seen on sagittal series 10 image 12, measuring approximately 6.5 cm in craniocaudal dimension. Surrounding soft tissue edema and/or hemorrhage is noted. Loose bodies: No well-defined intra-articular loose bodies are noted. Subcutaneous and extraarticular soft tissues: Within normal limits. Osseous structures: The patient is status post surgical fixation of the distal femur with multiple surgical screws in place. No definite evidence for acute bony injury of the distal femur can be seen on the basis of this examination. CT scanning may be helpful in further evaluation. No evidence for acute bony abnormality of the proximal tibia or proximal fibula can be seen. No acute bony abnormalities of the patella are noted. Ligamentous structures: ACL: Intact and normal in appearance. PCL: Intact and normal in appearance. MCL: Intact and normal in appearance. LCL: Intact and normal in appearance. Posterolateral corner: Intact and normal in appearance. Posteromedial corner: No posteromedial corner soft tissue injury. Semimembranosus and pes anserine tendons demonstrate no tendinopathy or associated bursitis. Extensor mechanism/Patellar retinacular structures: Patellar tendon: Intact, without tendinopathy. Quadriceps tendon: Intact, without tendinopathy. Retinacula: The medial and lateral retinacula are intact. The medial patellofemoral ligament is intact. Medial compartment: Medial meniscus: Degeneration of the middle and posterior portions of the medial meniscus can be seen without definite areas of well-defined medial meniscal tearing. There is no evidence for parameniscal cyst formation no parameniscal cyst formation is seen. Medial femoral condyle: No chondromalacia, chondral defect, or osteochondral abnormality. Medial tibial plateau: No chondromalacia, chondral defect, or osteochondral abnormality. Lateral compartment: Lateral meniscus: Degeneration and poorly defined tearing of the anterior horn of the lateral meniscus can be seen on sagittal series 6 images 22 and 23. The meniscal one third of the lateral meniscus demonstrates degeneration as does the posterior horn. No areas of displaced meniscal flap formation can be seen. No parameniscal cyst formation is identified. Lateral femoral condyle: There is cortical irregularity and chondromalacia involving the central and anterior articular surfaces of the lateral femoral condyle. No definite full-thickness chondral defects along the articular surfaces can be seen. Lateral tibial plateau: No chondromalacia, chondral defect, or osteochondral abnormality. Patellofemoral compartment: Patella: No chondromalacia, chondral defect, or osteochondral abnormality. Trochlea: No chondromalacia, chondral defect, or osteochondral abnormality. Neurovascular: No definite neurovascular abnormalities are seen. CONCLUSION: 1. 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 2. Degeneration of the medial meniscus without definite areas of well-defined tearing. 3. Cortical irregularity and chondromalacia along the central and anterior weightbearing surfaces of the lateral femoral condyle. No definite full- thickness chondral defects are seen. 4. The cruciate and collateral ligaments appear intact. 5. Postsurgical changes of the distal femur can be seen. No acute bony injuries about the knee are noted. 6. Mild to moderate knee joint effusion and moderate popliteal cyst. AEC Electronically signed on 04/15/2024 1:42:00 PM by Tree Parra M.D.
== END 2024-04-14 13:36 | disposition home or self-care (01) ==
LOC: MRI 13:36
PROVIDERS: PCP Family Medicine; Visit Provider Orthopaedic Surgery Sports Medicine
DX: M25.562 Pain in left knee (principal); S83.282A Other tear of lateral meniscus, current injury, left knee, initial encounter; M94.262 Chondromalacia, left knee; M25.462 Effusion, left knee
CPT/HCPCS: 73721; T1013

== ENCOUNTER 2024-07-01 15:48 | Outpatient (CLI) | payer OTHER, SELFPAY | END 2024-07-01 15:49 | disposition home or self-care (01) | LOC: NFLDREF 15:50 | PROVIDERS: PCP Family Medicine; Visit Provider Family Medicine | DX: I10 Essential (primary) hypertension (principal); E55.9 Vitamin D deficiency, unspecified | CPT/HCPCS: 80053; 82306 ==

== ENCOUNTER 2024-07-11 21:16 | Emergency (ER) | payer OTHER, SELFPAY ==
--- OUTSIDE RECORDS SUMMARY | 2024-07-11 21:18 | XMS_ITS | Referral Summary ---
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 Operator Name Role Phone None, Md Primary Care [...] on file Medical Devices Implanted Type Area Thermodynamic Physicist Device Identifier Shelf Expiration Date Model / Serial / Lot Pltsynt-Clvr 02/27/68/6h 241.361 - [id number] Implanted:Qty : 1 on 11/27/2020 at [facility] Plate Left: Femur Synthes 241.361 / / Scr Syn Crtx S/T3.5/38 204.838 - [id number] Implanted:Qty : 2 on 11/27/2020 at [facility] Screw/Anc hor Left: Femur Synthes 204.838 / / Scr Evos Mini Bn 18mm 2.4mm - [id number] Implanted:Qty : 1 on 11/27/2020 by Ngozi Cotto MD at [facility] Screw/Anc hor Left: Femur [employer] [id number] / / Scr Evos Mini Bn 26mm 2.4mm - [id number] Implanted:Qty : 2 on 11/27/2020 by Ngozi Cotto MD at [facility] Screw/Anc hor Left: Femur [employer] [id number] / / Scr Evos Mini Bn 60mm 2.4mm - [id number] Implanted:Qty : 1 on 11/27/2020 by Ngozi Cotto MD at [facility] Screw/Anc hor Left: Femur [employer] [id number] / / Scr Evos Bn 46mm 2.7mm T8 Drvr - [id number] Implanted:Qty : 2 on 11/27/2020 by Ngozi Cotto MD at [facility] Screw/Anc hor Left: Femur [employer] [id number] / / Scr Evos Mini Bn 65mm 2.4mm - [id number] Implanted:Qty : 1 on 11/27/2020 by Ngozi Cotto MD at [facility] Screw/Anc hor Left: Femur [employer] [id number] / / Scrsynlckstdr v3.5/20 212.106 - [id number] Implanted:Qty : 1 on 11/27/2020 at [facility] Screw/Anc hor Left: Femur [employer] 212.106 / / Evos 2.4mm Flex Plate 8 Hole Implanted:Qty : 1 on 11/27/2020 by Ngozi Cotto MD at [facility] Left: Femur [employer] [id number] / / Explanted Type Area Thermodynamic Physicist Device Identifier Shelf Expiration Date Model / Serial / Lot Plt Evos Mini Bn 70x7.5x1.4mm - [id number] Implanted:Ngozi Gaines MD (Quantity not on file) Explanted:Qty : 1 on 11/27/2020 by Ngozi Cotto MD at [facility] Plate Left: Femur [employer] [id number] / / Scr Evos Mini Bn 75mm 2.4mm - [id number] Implanted:Ngozi Gaines MD (Quantity not on file) Explanted:Qty : 1 on 11/27/2020 by Ngozi Cotto MD at [facility] Screw/Anc hor Left: Femur [employer] [id number] / / Insurance [facility] Advance Directives For more information, please contact: [phone] * Full Code (Latest Code Status on File) Date Activated Date Inactivated Comments 11/26/2020 9:08 PM 11/29/2020 2:19 AM Question Answer Comments How was code status determined? Physician Radha gee Care Teams Cellophane Bag Machine Operator Relationship Specialty Start Date End Date Md Yash PCP - General 11/26/20
--- OUTSIDE RECORDS SUMMARY | 2024-07-11 21:18 | XMS_ITS | Clinical Summary ---
Author Organization [facility] Address [address] [place] [id number] Care Team Providers Care Apron Trimmer Name Role Phone None, Md Primary Care [...] Adult Tetanus Booster 02/10/2022 02/11/2012 COVID-19 Vaccine (2023-2 5 season) 2023 Influenza Vaccine (Season Ended) 2024 12/08/19 16 RSV Vaccines (1 - 1-dose 75+ series) 05/21/2050 Meningococcal B Vaccine Aged Out No l onger eligible based on patient's age to complete this topic Pneumococcal Vaccine Aged Out No long er eligible based on patient's age to complete this topic Medical Devices Implanted Type Area Sustainable Systems Analyst Device Identifier Shelf Expiration Date Model / Serial / Lot Pltsynt-Clvr 02/27/68/6h 241.361 - [id number] Implanted:Qty : 1 on 11/27/2020 at [facility] Plate Left: Femur Synthes 241.361 / / Scr Syn Crtx S/T3.5/38 204.838 - [id number] Implanted:Qty : 2 on 11/27/2020 at [facility] Screw/Anc hor Left: Femur Synthes 204.838 / / Scr Evos Mini Bn 18mm 2.4mm - [id number] Implanted:Qty : 1 on 11/27/2020 by Ngozi Cotto MD at [facility] Screw/Anc hor Left: Femur [employer] [id number] / / Scr Evos Mini Bn 26mm 2.4mm - [id number] Implanted:Qty : 2 on 11/27/2020 by Ngozi Cotto MD at [facility] Screw/Anc hor Left: Femur [employer] [id number] / / Scr Evos Mini Bn 60mm 2.4mm - [id number] Implanted:Qty : 1 on 11/27/2020 by Ngozi Cotto MD at [facility] Screw/Anc hor Left: Femur [employer] [id number] / / Scr Evos Bn 46mm 2.7mm T8 Drvr - [id number] Implanted:Qty : 2 on 11/27/2020 by Ngozi Cotto MD at [facility] Screw/Anc hor Left: Femur [employer] [id number] / / Scr Evos Mini Bn 65mm 2.4mm - [id number] Implanted:Qty : 1 on 11/27/2020 by Ngozi Cotto MD at [facility] Screw/Anc hor Left: Femur [employer] [id number] / / Scrsynlckstdr v3.5/20 212.106 - [id number] Implanted:Qty : 1 on 11/27/2020 at [facility] Screw/Anc hor Left: Femur [employer]ynthes 212.106 / / Evos 2.4mm Flex Plate 8 Hole Implanted:Qty : 1 on 11/27/2020 by Ngozi Cotto MD at [facility] Left: Femur [employer] [id number] / / Explanted Type Area Sustainable Systems Analyst Device Identifier Shelf Expiration Date Model / Serial / Lot Plt Evos Mini Bn 70x7.5x1.4mm - [id number] Implanted:Ngozi Gaines MD (Quantity not on file) Explanted:Qty : 1 on 11/27/2020 by Ngozi Cotto MD at [facility] Plate Left: Femur [employer] [id number] / / Scr Evos Mini Bn 75mm 2.4mm - [id number] Implanted:Ngozi Gaines MD (Quantity not on file) Explanted:Qty : 1 on 11/27/2020 by Ngozi Ctoto MD at [facility] Screw/Anc hor Left: Femur [employer] [id number] / / [place] [facility] Address: [address] [address] Advance Directives For more information, please contact: [phone] * Full Code (Latest Code Status on File) Date Activated Date Inactivated Comments 11/26/2020 9:08 PM 11/29/2020 2:19 AM Question Answer Comments How was code status determined? Physician Determ ined Care Teams Apron Trimmer Relationship Specialty Start Date End Date Md Yash PCP - General 11/26/20
--- OUTSIDE RECORDS SUMMARY | 2024-07-11 21:18 | XMS_ITS | Clinical Summary ---
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 Gender Identity Not on file Sexual Orientation [...] Health Maintenance Due Date Last Done Comments Depression screening for age 12+ 1987 Hepatitis C screening for age 18-79 05/21/1993 BMI (ht and wt on same day) for age 18+ 09/01/2018 09/01/2017, 08/22/2017, 08/18/2017, Additional history exists Colonoscopy through age 75 05/21/2020 Mammogram for age 45-75 05/21/2020 12/27/2015 Lipids for age 45-75 12/20/2020 12/21/2015, 11/20/2010, 07/26/2008 Tetanus booster 02/10/2022 02/11/2012, 06/02/2007 Pap test for age 21-65 10/10/2023 , 10/09/2020, 12/21/2015, Additional history exists COVID-19 vaccine series ( season) 2023 Influenza Vaccine (Season Ended) 2024 12/08/2015 HIV for age 15-65 Completed 06/30/2008 Tdap Completed 02/11/2012 Pneumococcal series for age 6-49 Aged Out No longer eligible based on patient's age to complete this topic Procedures Procedure Name Priority Date/Time Associated Diagnosis Comments MAINTENANCE LEADER THIN PREP PAP SCREEN IMAGED Routine 10/09/2020 12:00 PM CDT XR MAMMO BILAT SCREEN FFDM (IA) Routine 12/27/2015 4:39 PM CDT Visit for screening mammogram LIPID PANEL W REFLEX MEASURED LDL Routine 12/21/2015 11:24 AM CDT Screening for lipid disorders ANTI HIV 1/2 Routine 06/30/2008 3:02 PM CDT Candidal Vaginitis from Last 3 Months or Most Recently Relevant to Health Maintenance Results * MAINTENANCE LEADER THIN PREP PAP SCREEN IMAGED (10/09/2020 12:00 PM CDT) Case Report Gynecologic Cytology Report Case: [id number] Authorizing Provider: Vandana Duenas Collected: 10/09/2020 1200 MMD Ordering Location: [facility] Received: 10/11/2020 0819 First Screen: Baccam, Minie Rescreen: Nicole Mitchell Specimen: MAINTENANCE LEADER ThinPrep Vial Screening, Cervical/Vaginal 10/25/2020 4:19 PM CDT [facility] INTERPRETATION/ RESULT NEGATIVE FOR INTRAEPITHELIAL LESION OR MALIGNANCY (NIL) (none) 10/25/2020 4:19 PM CDT [facility] at 1619 CDT SPECIMEN ADEQUACY Satisfactory for evaluation Endocervical component present 10/25/2020 4:19 PM CDT [facility] HPV REQUEST HPV and PAP 10/25/2020 4:19 PM CDT [facility] Additional Information 10/25/2020 4:19 PM CDT [facility] Comment: Interpreted at [facility] - [address], [place] [address] Automated Review Successful 10/25/2020 4:19 PM CDT [facility] Comment:Specimen processed s uccessfully by automated outpatient surgery rn device, [employer] ANCILLARY TESTING MAINTENANCE LEADER HPV Ordered, Please see separate report 10/25/2020 4:19 PM CDT [facility] Note The pap test is a [...] and malignant lesions. 10/25/2020 4:19 PM CDT [facility] Other (Cervical/Vagina l) 10/09/2020 12:00 PM CDT 10/11/2020 8:19 AM CDT Vandana Duenas MD PATHOLOGY/CYTOLOGY Final Result [facility] [address] [place] [address], [place] * XR MAMMO BILAT SCREEN FFDM [...] microcalcifications. Intramammary lymph node within both breasts. us Lorena ARANDA MAMMO Final Resu lt * (ABNORMAL) LIPID PANEL W REFLEX MEASURED LDL (12/21/2015 11:24 AM CDT) CHOLESTEROL,TOTAL 238(H) 100 - 199 mg/dL 12/21/2015 12:19 PM CDT [facility] TRIGLYCERIDES 110 <150 mg/dL 12/21/2015 12:19 PM CDT [facility] HDL CHOLESTEROL 50 >40 mg/dL 6 12:19 PM CDT [facility] NON-HDL CHOLESTEROL 188(H) <145 mg/dl 12/21/2015 12:19 PM CDT [facility] CHOL/HDL RATIO 4.76(H) <4.50 12/21/2015 12:19 PM CDT [facility] LDL CHOLESTEROL 166(H) <=130 mg/dL 12/21/2015 12:19 PM CDT [facility] PATIENT STATUS NOT GIVEN 12/21/2015 12:19 PM CDT [facility] Blood BLOOD SPECIMEN / Unknown Venipuncture / Unknown 12/21/2015 11:24 AM CDT 12/21/2015 11:24 AM CDT Lorena ARANDA CHEMISTRY Final Resu lt [facility] [address] [place] [address], [place] [phone] * ANTI HIV 1/2 (06/30/2008 3:02 PM CDT) ANTI HIV 1/2 Non-reacti ve [facility] Blood specimen (specimen) BLOOD SPECIMEN / Unknown 06/30/2008 3:02 PM CDT 06/30/2008 2:46 PM CDT Ngozi Ladd STEWARD/STEWARD[employer] DINING RO[employer] SEND OUTS Final R esult [facility] INTERNAL ZIP [id number] [address] [address] from Last 3 Months or Most Recently Relevant to Health Maintenance Advance Directives * Full Code (Latest Code Status on File) Date Activated Date Inactivated Comments 09/12/2011 4:18 PM 09/13/2011 2:44 PM * Full Code Date Activated Date Inactivated Comments 09/12/2011 8:24 AM 09/12/2011 4:18 PM Care Teams Community Health Agent Relationship Specialty Start Date End Date Pcp, No . PCP - General 04/02/18
[2024-07-11 21:30] VITALS: BP 152/91; PULSE 80; RESP 16; TEMP 36.6; O2SAT 96; BMI 39.1
--- NOTE | 2024-07-11 21:40 | ED.GENADULT ---
HPI - General Adult General Date Seen: 07/11/24 Chief complaint: Extremity Pain/Injury, Lower Stated complaint: left foot pain and swelling Time Seen by Provider: 07/11/24 21:34 History of Present Illness HPI narrative: 49-year-old female with a past medical history of left knee meniscus tear, pre diabetes, elevated BMI, abnormal LFTs, carpal tunnel syndrome, hypothyroidism, uterine fibroids, hypertension, hyperlipidemia, ovarian cysts presenting to the ER today for evaluation of left foot and ankle pain and swelling. She twisted her ankle about 2 weeks ago on June 27 and ever since then her foot has been swollen and painful. She actually injured her foot 2 weeks ago on June 27. She was walking and she just twisted her foot and fell. Ever since then she has been having pain, bruising and, and swelling affecting her left dorsal and lateral foot and the lateral malleolus of her ankle. She has been able to bear weight. She has pictures of her foot and ankle from the day after the injury where there is significant swelling all the way from her 5th toe up to the distal 1/4 of her fibula. Since then the bruising and swelling has been slowly getting better but she has had persistent pain which sometimes is a burning pain when she walks on it. She is scheduled for an orthopedic surgery tomorrow to remove hardware from her left knee and is worried that if she has a foot injury surgery might have to be canceled. Since the foot has not been getting better she came to the ER today to find out if it was broken or not. Per medical record she had a visit with Dr. Flood on 07/01 for a preop physical in anticipation Orthopedic surgery by Dr. Self 10 which is scheduled to happen tomorrow for removal of hardware from her knee. She also had onychomycosis so was requesting a refill of antifungal medication for her toenails. Related Data Home Medications ?Medication ?Instructions ?Recorded ?Confirmed ibuprofen 200 mg tablet 500 mg PO Q6-8H PRN 04/20/24 07/11/24 Previous Rx's ?Medication ?Instructions ?Recorded Blood Glucose Meter #1 ea 04/30/23 Diabetic Test Strips #100 ea 04/30/23 lancets 28 gauge (CareTouch Safety #100 ea 04/30/23 Lancets) chlorthalidone 25 mg tablet 12.5 mg (1/2 x 25 mg) PO QDAY #45 02/04/24 tabs cholecalciferol (vitamin D3) 50 50 mcg PO QDAY #90 caps 02/04/24 mcg (2,000 unit) capsule potassium chloride 10 mEq 10 meq PO QDAY #90 tabs 02/04/24 tablet,extended release terbinafine HCl 250 mg tablet 250 mg PO QDAY #84 tabs 07/01/24 cholecalciferol (vitamin D3) 1,250 1,250 mcg PO QWEEK #8 caps 07/07/24 mcg (50,000 unit) capsule Allergies Allergy/AdvReac Type Severity Reaction Status Date / Time No Known Allergies Allergy Unknown Verified 07/11/24 21:27 [facility] Medical History (Updated 07/11/24 @ 23:15 by Devan Thakkar MD) Cyst of ovary (2019) ?N83.209 - Unspecified ovarian cyst, unspecified side (ICD-10) Carpal tunnel syndrome on both sides ?G56.03 - Carpal tunnel syndrome, bilateral upper limbs (ICD-10) Hypokalemia ?E87.6 - Hypokalemia (ICD-10) Blurry vision ?H53.8 - Other visual disturbances (ICD-10) Weakness ?R53.1 - Weakness (ICD-10) Abnormal LFTs ?R79.89 - Other specified abnormal findings of blood chemistry (ICD-10) Obesity (BMI 30-39.9) ?E66.9 - Obesity, unspecified (ICD-10) Pre-diabetes ?R73.03 - Prediabetes (ICD-10) Left knee pain ?M25.562 - Pain in left knee (ICD-10) Fracture of right ankle, lateral malleolus ?S82.61XA - Displaced fracture of lateral malleolus of right fibula, initial encounter for closed fracture (ICD-10) Degenerative tear of lateral meniscus of left knee ?M23.301 - Other meniscus derangements, unspecified lateral meniscus, left knee (ICD-10) Cyst of left knee joint ?M25.862 - Other specified joint disorders, left knee (ICD-10) Osteoarthritis of left knee ?M17.12 - Unilateral primary osteoarthritis, left knee (ICD-10) Painful orthopaedic hardware ?T84.84XA - Pain due to internal orthopedic prosthetic devices, implants and grafts, initial encounter (ICD-10) Hx of diabetes mellitus ?Z86.39 - Personal history of other endocrine, nutritional and metabolic disease (ICD-10) Vitamin D deficiency ?E55.9 - Vitamin D deficiency, unspecified (ICD-10) Carpal tunnel syndrome of right wrist ?G56.01 - Carpal tunnel syndrome, right upper limb (ICD-10) Hypothyroidism ?E03.9 - Hypothyroidism, unspecified (ICD-10) Uterine leiomyoma ?D25.9 - Leiomyoma of uterus, unspecified (ICD-10) Hypertension ?I10 - Essential (primary) hypertension (ICD-10) Hyperlipidemia ?E78.5 - Hyperlipidemia, unspecified (ICD-10) History of hypokalemia ?Z86.39 - Personal history of other endocrine, nutritional and metabolic disease (ICD-10) Surgical History (Updated 06/04/24 @ 12:23 by Caroline Hurtado) History of reversal of tubal ligation (2006) ?Z98.890 - Other specified postprocedural states (ICD-10) History of open reduction and internal fixation (ORIF) procedure (11/27/20) ?Z98.890 - Other specified postprocedural states (ICD-10) History of myomectomy (09/12/11) ?Z98.890 - Other specified postprocedural states (ICD-10) History of section (1993) ?Z98.891 - History of uterine scar from previous surgery (ICD-10) Social History (Updated 04/06/24 @ 11:26 by India Rocha ~ [facility], [facility]) What is your current living situation?: I presently have a place to live Problems where you live: no known problems In the past 12 months, utilities in danger of being shut off: no In past 12 months, lack of transportation kept you from medical appts, meetings, work, or getting things needed for daily living: no In the past 12 mos, have been you worried that your food would run out before you had money to buy more?: never true In the past 12 mos, the food you bought just didn't last and you didn't have money to buy more?: never true Smoking Status: Never smoker Do you use any of these nicotine containing products: None Second hand tobacco smoke exposure: No How often do you have a drink containing alcohol: never How often do you have six or more drinks on one occasion: Never AUDIT-C Alcohol total score: 0 Non-prescribed substance use: denies use How often does anyone, including family, friends and others, physically hurt you: never How often does anyone, including family, friends and others, insult or talk down to you: never How often does anyone, including family, friends and others, threaten you with harm: never How often does anyone, including family, friends and others, scream or curse at you: never service: No Exam Narrative: Exam Narrative: Constitutional: Appears well-developed and well-nourished. Active. Non-toxic appearing. Conversant with her friend in Palestinian. Her friend interprets Lebanese to Palestinian for her. They politely declined the Palestinian-Lebanese iPad javascript developer. HENT: Head: Atraumatic. No signs of injury. Nose: No nasal discharge. Mouth/Throat: Mucous membranes are moist. Pharynx is normal. Tonsils symmetric. Uvula midline. Airway patent. Eyes: Conjunctivae normal and EOM are normal. Pupils are equal, round, and reactive to light. Right eye exhibits no discharge. Left eye exhibits no discharge. No icterus. Neck: Normal range of motion. Neck supple. No adenopathy. No stridor. Cardiovascular: Normal rate and regular rhythm. No murmur heard. No murmurs, rubs, or gallops. Brisk capillary refill Pulmonary/Chest: Effort normal. No stridor. No respiratory distress. No wheezes.No rhonchi. No rales. No retractions. Abdominal: Soft. Bowel sounds are normal. No distension. No mass. There is no tenderness. There is no rebound and no guarding. Musculoskeletal: Normal except for her left foot and ankle. She does have mild pain when she tries to bend and extend her left knee which is apparently chronic and is related to the hardware from her meniscus repair. She is scheduled to have surgery on her left knee tomorrow by Orthopedics, Dr. Greer. She does have bruising and ecchymosis affecting her left lateral malleolus with subtle ecchymosis affecting about the distal 5/10 cm of the fibula and lateral malleolus. This ecchymosis extends distally onto the lateral midfoot and forefoot. There is swelling involving the left midfoot and forefoot is well more on the dorsal and lateral side. Less swelling on the medial side. She is tender over the lateral malleolus, dorsal and lateral midfoot, and also on the base of the 5th metatarsal. She is not really tender over the metatarsal heads or the toes. Intact toe wiggling and plantar flexion dorsiflexion. Intact plantar flexion and dorsiflexion of the foot. Intact sensory function on the medial and lateral foot, sole of the foot, dorsal 1st webspace. Normal distal cap refill. Strong DP and PT pulses. Neurological: Alert. Normal strength. No cranial nerve deficit or sensory deficit. Coordination normal. GCS eye subscore is 4. GCS verbal subscore is 5. GCS motor subscore is 6. Skin: Skin is warm. No rash noted. Const: Vital Signs, click to edit/add: Vital Signs - 24 hr 07/11/24 21:30 Temperature 97.8 F Pulse Rate [Pulse Oximeter] 80 Respiratory Rate 16 Blood Pressure [Ri t Upper Arm] 152/91 H Pulse Oximetry 96 Oxygen Delivery Me thod Room Air Course Course ED Course: I reviewed the patient's x-rays. They do reveal evidence for a fracture through the base of the left foot 5th metatarsal. This appears to be a zone 1 fracture or an avulsion of the tuberosity, not a Hwang fracture. Vital Signs Vital signs: Initial Vital Signs Temperature 97.8 F 07/11/24 21:30 Temperature Source Temporal Artery Scan 07/11/24 21:30 Pulse Rate 80 07/11/24 21:30 Respiratory Rate 16 07/11/24 21:30 Blood Pressure 152/91 H 07/11/24 21:30 Blood Pressure Mean 111 H 07/11/24 21:30 Pulse Oximetry 96 07/11/24 21:30 Oxygen Delivery Method Room Air 07/11/24 21:30 Vital Signs Temperature 97.8 F 07/11/24 21:30 Pulse Rate 80 07/11/24 21:30 Respiratory Rate 16 07/11/24 21:30 Blood Pressure 152/91 H 07/11/24 21:30 Pulse Oximetry 96 07/11/24 21:30 Oxygen Delivery Method Room Air 07/11/24 21:30 Temperature 97.8 F 07/11/24 21:30 Pulse Rate 80 07/11/24 21:30 Respiratory Rate 16 07/11/24 21:30 Blood Pressure 152/91 H 07/11/24 21:30 Pulse Oximetry 96 07/11/24 21:30 Oxygen Delivery Method Room Air 07/11/24 21:30 Medical Decision Making MDM Narrative Medical decision making narrative: Pleasant 49-year-old female presenting to the ER today because she has persistent left foot and ankle pain, swelling, and bruising. She actually had twisted her foot and fallen 2 weeks ago. She has been walking on her injured foot for the past 2 weeks but is just not getting better. She is scheduled for a left knee surgery tomorrow by Orthopedics here in [place], Dr. Self 10. She is worried that with the persistent foot pain, her surgery might need to be canceled. X-rays of the patient's left foot and ankle are obtained they do reveal evidence for a avulsion fracture from the tuberosity of the left 5th metatarsal. This is likely an avulsion fracture. A bit too proximal to be a metatarsal shaft fracture or a Hwang fracture. Reviewed with orthopedics on-call, Fariha jack. She agrees that the patient would be appropriate for outpatient management in the either a ortho shoe or a cam boot. Crutches if needed for weight-bearing but she can weight bear as tolerated. We selected to put the patient in ortho shoe because she also has left knee pain and walking with the weight of the cam boot might strain her left knee and cause increased pain there. Orthopedics says that is okay for her to go through with her surgery tomorrow and that she should come at her scheduled time for the operation. Reviewed the x-ray findings and the plan with the patient and her friend and they are in agreement and her please that she can go ahead with surgery. Discussed that she can use Tylenol if needed for pain. She requests 2 printed copies of her x-rays, which are provided. Imaging Data XR L foot: Attestation: I have reviewed the pertinent imaging results. Radiologist's impression: IMPRESSION: 1. There is a nondisplaced intra-articular fracture present at the base of the 5th metatarsal. XR Left ankle: Attestation: I have reviewed the pertinent imaging results. Radiologist's impression: IMPRESSION: 1. No acute osseous injuries or abnormalities are noted. Discharge Plan Discharge Clinical Impression: Fracture of base of fifth metatarsal bone Patient Disposition: Home, Self-Care Instructions: Crutch Instructions (ED), Foot Fracture in Adults (ED) Additional Instructions: As we discussed, please follow-up tomorrow with the [place] for your knee surgery. The orthopedic team will give you directions about when to follow-up for your foot fracture. Please wear the ortho shoe on your foot to protect the broken bone until ortho clears you to walk without it. As the crutches as needed help keep weight off her left foot. Prescriptions: No Action (DME) Blood Glucose Meter Misc See Rx Instructions .ROUTE .MEDSUPPLY Qty: 1 0RF Rx Instructions: As directed (DME) Diabetic Test Strips Misc See Rx Instructions .ROUTE .MEDSUPPLY Qty: 100 3RF Rx Instructions: bid prn (DME) lancets [CareTouch Safety Lancets] 28 gauge misc See Rx Instructions .ROUTE .MEDSUPPLY Qty: 100 3RF Rx Instructions: As directed chlorthalidone 25 mg tablet 12.5 mg PO QDAY Qty: 45 3RF potassium chloride 10 mEq tablet extended release 10 meq PO QDAY Qty: 90 3RF cholecalciferol (vitamin D3) 50 mcg (2,000 unit) capsule 50 mcg PO QDAY Qty: 90 3RF ibuprofen 200 mg tablet 500 mg PO Q6-8H PRN terbinafine HCl 250 mg tablet 250 mg PO QDAY Qty: 84 0RF cholecalciferol (vitamin D3) 1,250 mcg (50,000 unit) capsule 1,250 mcg PO QWEEK Qty: 8 0RF Follow Up/Referrals: Nilay Ruiz MD [Primary Care Provider] - Stand Alone Forms: Work/School Release, [facility] Info Instructions
--- NOTE | 2024-07-11 21:58 | CRLHL7_ITS ---
For Patients: As a result of the Century Cures Act, medical imaging exams and procedure reports are released immediately into your electronic medical record. You may view this report before your referring provider. If you have questions, please contact your health care provider. INDICATION: Left ankle pain, bruising, swelling, fall 2 weeks ago TECHNIQUE: Foot radiograph 3 views left COMPARISON: None FINDINGS: Bone: There is a nondisplaced intra-articular fracture present at the base of the 5th metatarsal. An accessory cuboid bone is noted. There is a small plantar calcaneal spur present. Stage 1 (mild) metatarsus primus varus hallux valgus deformity is present. The Hallux angle measures 21 degrees. Mild proliferative osseous changes are seen over the medial eminence of the 1st metatarsal head. Joint: The visualized hindfoot, midfoot, and forefoot joints are unremarkable in appearance. No significant ankle effusion is seen. Soft tissue: Unremarkable. No radiopaque foreign bodies are seen. IMPRESSION: 1. There is a nondisplaced intra-articular fracture present at the base of the 5th metatarsal. Dictated by Edis Kelly MD @ 07/11/2024 10:34:45 PM Dictated by: Edis Kelly MD @ 07/11/2024 22:36:06 (Electronically Signed)
--- NOTE | 2024-07-11 21:58 | CRLHL7_ITS ---
For Patients: As a result of the Century Cures Act, medical imaging exams and procedure reports are released immediately into your electronic medical record. You may view this report before your referring provider. If you have questions, please contact your health care provider. INDICATION: Left ankle pain, bruising, swelling, fall 2 weeks ago TECHNIQUE: Ankle radiograph 3 views left COMPARISON: None FINDINGS: Bone: No acute fractures or aggressive bone lesions are identified in the ankle. The 5th metatarsal fracture is described on separate report. Joint: The ankle mortise joint and the visualized hindfoot joints are unremarkable in appearance. No significant ankle effusion is seen. Soft tissue: The Kager fat pad and the Achilles` tendon are normal in appearance. No radiopaque foreign bodies are seen. IMPRESSION: 1. No acute osseous injuries or abnormalities are noted. Dictated by: Edis Kelly MD @ 07/11/2024 22:33:45 (Electronically Signed)
--- OUTSIDE RECORDS SUMMARY | 2024-07-11 22:08 | XMS_ITS | Clinical Summary ---
Author Organization [facility] Address [address] [place] [address] Care Team Providers Care Pony Roll Finisher Name Role Phone None, Md Primary Care [...] this topic Medical Devices Implanted Type Area Harness Preparer Device Identifier Shelf Expiration Date Model / Serial / Lot Pltsynt-Clvr 02/27/68/6h 241.361 - [id number] Implanted:Qty : 1 on 11/27/2020 at [facility] Plate Left: Femur Synthes 241.361 / / Scr Syn Crtx S/T3.5/38 204.838 - [id number] Implanted:Qty : 2 on 11/27/2020 at [facility] Screw/Anc hor Left: Femur Synthes 204.838 / / Scr Evos Mini Bn 18mm 2.4mm - [id number] Implanted:Qty : 1 on 11/27/2020 by Ngozi Cotto MD at [facility] Screw/Anc hor Left: Femur [employer] [id number] / / Scr Evos Mini Bn 26mm 2.4mm - [id number] Implanted:Qty : 2 on 11/27/2020 by Ngozi Cotto MD at [facility] Screw/Anc hor Left: Femur [employer] [id number] / / Scr Evos Mini Bn 60mm 2.4mm - [id number] Implanted:Qty : 1 on 11/27/2020 by Ngozi Cotto MD at [facility] Screw/Anc hor Left: Femur [employer] [id number] / / Scr Evos Bn 46mm 2.7mm T8 Drvr - [id number] Implanted:Qty : 2 on 11/27/2020 by Ngozi Cotto MD at [facility] Screw/Anc hor Left: Femur [employer] [id number] / / Scr Evos Mini Bn 65mm 2.4mm - [id number] Implanted:Qty : 1 on 11/27/2020 by Ngozi Cotto MD at [facility] Screw/Anc hor Left: Femur [employer] [id number] / / Scrsynlckstdr v3.5/20 212.106 - [id number] Implanted:Qty : 1 on 11/27/2020 at [facility] Screw/Anc hor Left: Femur Synthes 212.106 / / Evos 2.4mm Flex Plate 8 Hole Implanted:Qty : 1 on 11/27/2020 by Ngozi Cotto MD at [facility] Left: Femur [employer] [id number] / / Explanted Type Area Harness Preparer Device Identifier Shelf Expiration Date Model / Serial / Lot Plt Evos Mini Bn 70x7.5x1.4mm - [id number] Implanted:Ngozi Gaines MD (Quantity not on file) Explanted:Qty : 1 on 11/27/2020 by Ngozi Cotto MD at [facility] Plate Left: Femur [employer] [id number] / / Scr Evos Mini Bn 75mm 2.4mm - [id number] Implanted:Ngozi Gaines MD (Quantity not on file) Explanted:Qty : 1 on 11/27/2020 by Ngozi Cotto MD at [facility] Screw/Anc hor Left: Femur [employer] [id number] / / Insurance [facility] COMMERCIAL Advance Directives For more information, please contact: [phone] * Full Code (Latest Code Status on File) Date Activated Date Inactivated Comments 11/26/2020 9:08 PM 11/29/2020 2:19 AM Question Answer Comments How was code status determined? Physician Determ ined Care Teams Pony Roll Finisher Relationship Specialty Start Date End Date Md Yash PCP - General 11/26/20
--- OUTSIDE RECORDS SUMMARY | 2024-07-11 22:08 | XMS_ITS | Referral Summary ---
Author Organization [facility] Address [address] [place] [address] Care Team Providers Care Auditing Clerk Name Role Phone None, Md Primary Care [...] on file Medical Devices Implanted Type Area Street Light Servicer Supervisor Device Identifier Shelf Expiration Date Model / Serial / Lot Pltsynt-Clvr 02/27/68/6h 241.361 - [id number] Implanted:Qty : 1 on 11/27/2020 at [facility] Plate Left: Femur Synthes 241.361 / / Scr Syn Crtx S/T3.5/38 204.838 - [id number] Implanted:Qty : 2 on 11/27/2020 at [facility] Screw/Anc hor Left: Femur Synthes 204.838 / / Scr Evos Mini Bn 18mm 2.4mm - [id number] Implanted:Qty : 1 on 11/27/2020 by Ngozi Cotto MD at [facility] Screw/Anc hor Left: Femur [employer] [id number] / / Scr Evos Mini Bn 26mm 2.4mm - [id number] Implanted:Qty : 2 on 11/27/2020 by Ngozi Cotto MD at [facility] Screw/Anc hor Left: Femur [employer] [id number] / / Scr Evos Mini Bn 60mm 2.4mm - [id number] Implanted:Qty : 1 on 11/27/2020 by Ngozi Cotto MD at [facility] Screw/Anc hor Left: Femur [employer] [id number] / / Scr Evos Bn 46mm 2.7mm T8 Drvr - [id number] Implanted:Qty : 2 on 11/27/2020 by Ngozi Cotto MD at [facility] Screw/Anc hor Left: Femur [employer] [id number] / / Scr Evos Mini Bn 65mm 2.4mm - [id number] Implanted:Qty : 1 on 11/27/2020 by Ngozi Cotto MD at [facility] Screw/Anc hor Left: Femur [employer] [id number] / / Scrsynlckstdr v3.5/20 212.106 - [id number] Implanted:Qty : 1 on 11/27/2020 at [facility] Screw/Anc hor Left: Femur Synthes 212.106 / / Evos 2.4mm Flex Plate 8 Hole Implanted:Qty : 1 on 11/27/2020 by Ngozi Cotto MD at [facility] Left: Femur [employer] [id number] / / Explanted Type Area Street Light Servicer Supervisor Device Identifier Shelf Expiration Date Model / Serial / Lot Plt Evos Mini Bn 70x7.5x1.4mm - [id number] Implanted:Ngozi Gaines MD (Quantity not on file) Explanted:Qty : 1 on 11/27/2020 by Ngozi Cotto MD at [facility] Plate Left: Femur [employer] [id number] / / Scr Evos Mini Bn 75mm 2.4mm - [id number] Implanted:Ngozi Gaines MD (Quantity not on file) Explanted:Qty : 1 on 11/27/2020 by Ngozi Cotto MD at [facility] Screw/Anc hor Left: Femur [employer] [id number] / / Insurance [facility] COMMERCIAL Advance Directives For more information, please contact: [phone] * Full Code (Latest Code Status on File) Date Activated Date Inactivated Comments 11/26/2020 9:08 PM 11/29/2020 2:19 AM Question Answer Comments How was code status determined? Physician Radha gee Care Teams Auditing Clerk Relationship Specialty Start Date End Date Md Yash PCP - General 11/26/20
--- OUTSIDE RECORDS SUMMARY | 2024-07-11 22:08 | XMS_ITS | Clinical Summary ---
Author Organization [facility] Address [address] [place] [address] Care Team Providers Care Driver Sales Name Role Phone Pcp, No Primary Care [...] on file Legal Sex Female 5:45 AM TOUR AGENT Gender Identity Not on file Sexual Orientation [...] Procedure Name Priority Date/Time Associated Diagnosis Comments FLAT EXAMINER THIN PREP PAP SCREEN IMAGED Routine 10/09/2020 12:00 PM CDT XR MAMMO BILAT SCREEN FFDM (IA) Routine 12/27/2015 4:39 PM CDT Visit for screening mammogram LIPID PANEL W REFLEX MEASURED LDL Routine 12/21/2015 11:24 AM CDT Screening for lipid disorders ANTI HIV 1/2 Routine 06/30/2008 3:02 PM CDT Candidal Vaginitis from Last 3 Months or Most Recently Relevant to Health Maintenance Results * FLAT EXAMINER THIN PREP PAP SCREEN IMAGED (10/09/2020 12:00 PM CDT) Case Report Gynecologic Cytology Report Case: [id number] Authorizing Provider: Vandana Duenas Collected: 10/09/2020 1200 MMD Ordering Location: [facility] Received: 10/11/2020 0819 First Screen: Baccam, Minie Rescreen: Nicole Mitchell Specimen: FLAT EXAMINER ThinPrep Vial Screening, Cervical/Vaginal 10/25/2020 4:19 PM CDT [facility] INTERPRETATION/ RESULT NEGATIVE FOR INTRAEPITHELIAL LESION OR MALIGNANCY (NIL) (none) 10/25/2020 4:19 PM CDT [facility] at 1619 CDT SPECIMEN ADEQUACY Satisfactory for evaluation Endocervical component present 10/25/2020 4:19 PM CDT [facility] HPV REQUEST HPV and PAP 10/25/2020 4:19 PM CDT [facility] Additional Information 10/25/2020 4:19 PM CDT [facility] Comment: Interpreted at [facility], Central Laboratory - [address], [place] [address] Automated Review Successful 10/25/2020 4:19 PM CDT [facility] Comment:Specimen processed s uccessfully by automated cat wagon operator device, [employer] System, [employer] ANCILLARY TESTING FLAT EXAMINER HPV Ordered, Please see separate report 10/25/2020 4:19 PM CDT [facility] Note The pap test is a [...] and malignant lesions. 10/25/2020 4:19 PM CDT [facility] Other (Cervical/Vagina l) 10/09/2020 12:00 PM CDT 10/11/2020 8:19 AM CDT Vandana Duenas MD PATHOLOGY/CYTOLOGY Final Result [facility] [address] [place] [address], [place] * XR MAMMO BILAT SCREEN FFDM [...] - 199 mg/dL 12/21/2015 12:19 PM CDT [facility] TRIGLYCERIDES 110 <150 mg/dL 12/21/2015 12:19 PM CDT [facility] HDL CHOLESTEROL 50 >40 mg/dL 6 12:19 PM CDT [facility] NON-HDL CHOLESTEROL 188(H) <145 mg/dl 12/21/2015 12:19 PM CDT [facility] CHOL/HDL RATIO 4.76(H) <4.50 12/21/2015 12:19 PM CDT [facility] LDL CHOLESTEROL 166(H) <=130 mg/dL 12/21/2015 12:19 PM CDT [facility] PATIENT STATUS NOT GIVEN 12/21/2015 12:19 PM CDT [facility] Blood BLOOD SPECIMEN / Unknown Venipuncture / Unknown 12/21/2015 11:24 AM CDT 12/21/2015 11:24 AM CDT Lorena ARANDA CHEMISTRY Final Resu lt [facility] [address] [place] [address], [place] [phone] * ANTI HIV 1/2 (06/30/2008 3:02 PM CDT) ANTI HIV 1/2 Non-reacti ve [facility] Blood specimen (specimen) BLOOD SPECIMEN / Unknown 06/30/2008 3:02 PM CDT 06/30/2008 2:46 PM CDT Ngozi Ladd SENIOR SITE MANAGER SEND OUTS Final R esult [facility] INTERNAL ZIP [phone] [address] from Last 3 Months or Most Recently Relevant to Health Maintenance Advance Directives * Full Code (Latest Code Status on File) Date Activated Date Inactivated Comments 09/12/2011 4:18 PM 09/13/2011 2:44 PM * Full Code Date Activated Date Inactivated Comments 09/12/2011 8:24 AM 09/12/2011 4:18 PM Care Teams Driver Sales Relationship Specialty Start Date End Date Pcp, No . PCP - General 04/02/18
== END 2024-07-11 23:30 | disposition home or self-care (01) ==
PROVIDERS: Emergency Provider Emergency Medicine; PCP Family Medicine
DX: S92.352A Displaced fracture of fifth metatarsal bone, left foot, initial encounter for closed fracture (principal); W18.30XA Fall on same level, unspecified, initial encounter; Y93.01 Activity, walking, marching and hiking
CPT/HCPCS: 73610; 73630; 99282; 99284

== ENCOUNTER 2024-07-12 07:30 | Day surgery (SDC) | payer OTHER, SELFPAY ==
[2024-07-12] VITALS (16 sets, daily range): BP systolic 95–162; BP diastolic 65–125; PULSE 67–94; RESP 14–16; TEMP 35.9–37.1; O2SAT 91–100; BMI 36.5
[2024-07-12] MEDS: SODIUM CHLORIDE 0.9 % (FLUSH) 10 ML SYRINGE IVF (08:12)
[2024-07-12] MEDS: LACTATED RINGERS 1000 ML 1,000 ML 100 ML IV ×2 (08:12→11:16)
--- NOTE | 2024-07-12 08:37 | W.PM.H&PU ---
History & Physical Update History & Physical Update H&P Reviewed and patient assessed: No changes noted
[2024-07-12] MEDS: CEFAZOLIN 2 GM INJ IVP (09:16)
--- NOTE | 2024-07-12 09:38 | CRLHL7_ITS ---
For Patients: As a result of the Cures Act, medical imaging exams and procedure reports are released immediately into your electronic medical record. You may view this report before your referring provider. If you have questions, please contact your health care provider. Indication: INTRA OP KNEE HARDWARE REMOVAL Technique: One fluoroscopic image of the left knee. Fluoroscopic time 0.6 seconds. IMPRESSION: Fluoroscopic removal of hardware from the distal femur. Dictated by Landon Engel MD @ 07/12/2024 12:28:38 PM (Electronically Signed)
[2024-07-12] MEDS: ROPIVACAINE 0.5% 30 ML 150 MG INJECTION (11:57)
--- NOTE | 2024-07-12 12:07 | PM.ORPRC ---
Procedure Note Date of procedure: 07/12/24 Procedure: PREOPERATIVE DIAGNOSIS: 1. Left knee lateral meniscus tear 2. Left knee retained deep implant, symptomatic POSTOPERATIVE DIAGNOSIS: 1. Left knee patellofemoral chondromalacia, grade 3 with loose chondral flaps 2. Left knee retained deep implant, symptomatic 3. Left knee abundant synovitis PROCEDURE: 1. Left knee arthroscopic patellofemoral chondroplasty 2. Left knee arthroscopic synovial biopsy 3. Left knee deep implant removal, open -100% added time and difficulty for this case more than an average deep implant removal case due to incorrect labeling from the previous operative note. Despite multiple different T6 and T8 star bit drivers, none were able to fit the screw properly. Instead, we had to use complex screw removal set and add increased time and deep tissue dissection to safely and completely removed the hardware that clearly was symptomatic presumably causing the synovitis. 4. Intraoperative fluoroscopy up to 1 hour. C-arm fluoroscopy operated by Noah Saavedra M.D. for intraoperative confirmation of all metallic hardware removal. A single C-arm spot image was saved/sent to PACS. Fluoroscopy time was 0:00.6 SURGEON: Noah Saavedra M.D. MACHINE ENGRAVER: Adelso AGUILAR. Of note, an geriatric nursing assistant was critical for this case to aid in patient positioning, knee manipulation, instrument exchange, and closure. ANESTHESIA: General anesthetic EBL: 100 mL TOURNIQUET: 120 minutes at 300 torr COMPLICATIONS: None evident INDICATIONS: The patient is a pleasant 49-year-old female who has experienced left knee pain particularly with any twisting or turning. History is notable for up remote trauma to this left knee resulting in femoral fracture. She underwent ORIF at [facility] in the remote past. Her hardware has been symptomatic. She requests that this be removed. In addition, the MRI was obtained and had concern for lateral meniscus tear. Additionally, attempted nonoperative management has been tried, and failed. Thus, surgery was recommended. FINDINGS: Upon entering the knee there was a moderate effusion. Abundant synovitis that appeared rust colored throughout all the visualized synovium including that which was covering the ACL and PCL and even over the top of the menisci. Lateral meniscus had minimal fraying of the far central portion but no clear tearing despite probing even at the posterior root. All was intact. Medial meniscus had what appeared to be a remote tear through the posterior horn to midbody junction, but this appeared to be healed as there was some fibrous tissue. It was stable upon probing. ACL and PCL were intact. Again covered with this synovitis. DESCRIPTION OF PROCEDURE: After a thorough discussion of risks, benefits, and alternatives, the patient was brought to the operating room and placed upon the operating table. Induction of anesthesia was undertaken as previously noted. 2g iv Ancef was administered within 1 hr of incision preoperatively. Appropriate time-out was performed identifying proper patient, site, and procedure. The left lower extremity was prepped and draped in the appropriate sterile fashion using ChloraPrep. The limb was exsanguinated and tourniquet inflated. Anterolateral and anteromedial portals were established with an 11 blade, and a diagnostic arthroscopy was performed. This identified the findings as noted above. Following the diagnostic arthroscopy and probing of the menisci, the patellofemoral chondroplasty was performed with a motorized shaver. In addition, the synovial tissue was captured with a pituitary rongeur and sent for permanent pathology. The burnished prongs color was very atypical, but certainly may have simply been irritation from the hardware. Indeed along the lateral femoral condyle within the joint capsule 1 could see the femoral plate and multiple screws. At this stage, we proceeded to the open portion to remove the hardware. The previous anterolateral incision was made along the distal thigh. Sharp incision through skin and blunt dissection through the subcutaneous tissue lateral to identify the ITB band. This was bluntly divided along its posterior 2/3 in line with the fibers. We were able to remove the more proximal plate which had 3 screws in it and the plate was also removed without difficulty. We turned our attention to the more distal plate across the lateral to anterior portion of the distal femur. A separate lateral retinacular division was created sharply with a 15 blade just in the far anterior aspect of the ITB band. The screwdriver was apparently different, and appeared to be somewhere between at T6 and T8 screw. Neither of these head ability to grasp the screws properly. With some difficulty, we were able to eventually remove the screws completely including this plate. Again, it required much difficulty and more 100% more time than would be expected for a typical hardware removal. The 2 separate screws that were not within the plate were also identified and removed. A single fluoroscopic image via the C-arm was obtained and confirmed that all hardware was removed. Thorough irrigation with normal saline was performed through the open incision again. The tourniquet was deflated mid procedure as it 120 minutes was reached. Closure was performed with 2-0 Stratafix to reapproximate the IT band on both its anterior and posterior aspects. Skin closure was then performed with 2-0 Stratafix and 4-0 Monocryl for subcutaneous and subcuticular closure, respectively. Dressings were applied, and the patient was awoken from anesthesia and transferred to the PACU in stable condition after local anesthetic (0.5% ropivacaine plain-100 mg) was administered both within the subcutaneous tissues as well as the capsular tissues and medial and lateral genicular regions. PLAN: 1. Weightbear as tolerated operative extremity. Crutch / walker ambulation assistance PRN. Straight leg raise to be initiated starting tomorrow by the patient. 2. Ice, acetominophen and/or ibuprofen, and Oxycodone for pain as needed. 3. Knee range of motion and quad sets/straight leg raise regularly 4. Follow up with PA visit in 7-10 days. for a wound check. Initiate physical therapy at that time
--- NOTE | 2024-07-12 12:36 | P.ANES_ITS ---
Anesthesia Charges Start Date/Time Anesthesia Start Date: 07/12/24 Anesthesia Start Time: 09:09 Stop Date/Time Anesthesia Stop Date: 07/12/24 Anesthesia Stop Time: 12:33 Coding CPT Codes CPT Codes: ANESTH KNEE JOINT SURGERY - 10774 ([id number]) P2 - PATIENT W/MILD SYST DISEASE, QK - SODA JERKER 2-4 CNCRNT ANES PROC, QX - PROJECT EXECUTIVE SVC W/ MD MED DIRECTION
--- NOTE | 2024-07-12 12:36 | W.ANESCHARGE ---
Anesthesia Charges Start Date/Time Anesthesia Start Date: 07/12/24 Anesthesia Start Time: 09:09 Stop Date/Time Anesthesia Stop Date: 07/12/24 Anesthesia Stop Time: 12:33 Coding CPT Codes CPT Codes: ANESTH KNEE JOINT SURGERY - 80076 ([id number]) P2 - PATIENT W/MILD SYST DISEASE, QK - SUPERVISOR SCENIC ARTS 2-4 CNCRNT ANES PROC, QX - REGULATORY COMPLIANCE MANAGER SVC W/ MD MED DIRECTION
[2024-07-12] MEDS: fentaNYL 100 MCG/2 ML inj 50 MCG IVP ×2 (12:51→12:56)
[2024-07-12] MEDS: MEPERIDINE 25 MG/ML INJ 12.5 MG IVP (13:00)
--- NOTE | 2024-07-12 13:19 | P.ANES_ITS ---
Anesthesia Charges Start Date/Time Anesthesia Start Date: 07/12/24 Anesthesia Start Time: 09:09 Stop Date/Time Anesthesia Stop Date: 07/12/24 Anesthesia Stop Time: 12:33 Coding CPT Codes CPT Codes: ANESTH KNEE JOINT SURGERY - 99412 ([id number]) QK - NEWS SPECIALIST 2-4 CNCRNT ANES PROC, QX - COMPETENCY EVALUATED NURSE AIDE SVC W/ MD MED DIRECTION, P2 - PATIENT W/MILD SYST DISEASE
--- NOTE | 2024-07-12 13:19 | W.ANESCHARGE ---
Anesthesia Charges Start Date/Time Anesthesia Start Date: 07/12/24 Anesthesia Start Time: 09:09 Stop Date/Time Anesthesia Stop Date: 07/12/24 Anesthesia Stop Time: 12:33 Coding CPT Codes CPT Codes: ANESTH KNEE JOINT SURGERY - 86087 ([id number]) QK - CHEMIST WATER PURIFICATION 2-4 CNCRNT ANES PROC, QX - WINDING INSPECTOR SVC W/ MD MED DIRECTION, P2 - PATIENT W/MILD SYST DISEASE
[2024-07-12] MEDS: METOCLOPRAMIDE HCL 5 MG/ML INJ 10 MG IVP (14:40)
== END 2024-07-12 15:30 | disposition home or self-care (01) ==
LOC: OR 07:35
PROVIDERS: PCP Family Medicine; Visit Provider Orthopaedic Surgery Sports Medicine
PROC: (CPT 29870; principal; 2024-07-12 08:45)
PROC: (CPT 20680; 2024-07-12 08:45)
DX: M22.42 Chondromalacia patellae, left knee (principal); T84.195A Other mechanical complication of internal fixation device of left femur, initial encounter; M67.862 Other specified disorders of synovium, left knee; M25.562 Pain in left knee; R73.03 Prediabetes; Z86.39 Personal history of other endocrine, nutritional and metabolic disease; E66.9 Obesity, unspecified; Z68.36 Body mass index [BMI] 36.0-36.9, adult; I10 Essential (primary) hypertension
CPT/HCPCS: 29877; 20680; 01400; 73560; 76000; 82962; 88305; T1013; J0690; J1100; J2175; J2405; J2704; J2765; J2795; J3010; J3490; J7120

== ENCOUNTER 2024-08-10 13:00 | Outpatient (RCR) | payer OTHER, SELFPAY | END 2024-08-25 12:13 | disposition home or self-care (01) | PROVIDERS: PCP Family Medicine; Visit Provider Orthopaedic Surgery Sports Medicine | DX: Z48.89 Encounter for other specified surgical aftercare (principal); M25.562 Pain in left knee; Z51.89 Encounter for other specified aftercare | CPT/HCPCS: 97110; 97112; 97116; 97161; T1013 ==

== ENCOUNTER 2024-11-09 13:26 | Outpatient (CLI) | payer OTHER, SELFPAY ==
--- NOTE | 2024-11-09 14:40 | CRLHL7_ITS ---
For Patients: As a result of the Century Cures Act, medical imaging exams and procedure reports are released immediately into your electronic medical record. You may view this report before your referring provider. If you have questions, please contact your health care provider. INDICATION: BILATERAL SCREENING MAMMOGRAM, ASYMPTOMATIC 49 Y/O FEMALE COMPARISON: 08/01/2022, 12/27/2015 TECHNIQUE: Digital mammogram in CC and MLO projections including computer-aided detection (CAD) and tomosynthesis. BREAST COMPOSITION: There are scattered areas of fibroglandular density. FINDINGS: No suspicious findings. ASSESSMENT: BI-RADS 2 Benign RECOMMENDATION: Annual screening mammogram. A lay language report of this examination will be provided to the patient. Dictated by: Landon Engel MD @ 11/10/2024 09:35:32 (Electronically Signed)
== END 2024-11-09 13:27 | disposition home or self-care (01) ==
LOC: MAMMO 13:27
PROVIDERS: PCP Family Medicine; Visit Provider Family Medicine
DX: Z12.31 Encounter for screening mammogram for malignant neoplasm of breast (principal)
CPT/HCPCS: 77063; 77067

== ENCOUNTER 2025-01-07 10:05 | Outpatient (CLI) | payer OTHER, SELFPAY | END 2025-01-07 10:06 | disposition home or self-care (01) | LOC: NFLDREF 01-12 18:27 | PROVIDERS: PCP Family Medicine; Referring Provider Family Medicine; Visit Provider Family Medicine | DX: E78.5 Hyperlipidemia, unspecified (principal); E53.8 Deficiency of other specified B group vitamins; E55.9 Vitamin D deficiency, unspecified | CPT/HCPCS: 80053; 80061; 82306; 82607 ==

== ENCOUNTER 2025-01-30 10:41 | Emergency (ER) | payer OTHER, SELFPAY ==
[2025-01-30] VITALS (16 sets, daily range): BP systolic 112–149; BP diastolic 64–81; PULSE 57–76; RESP 10–22; TEMP 36.8; O2SAT 94–98; BMI 36.0
--- OUTSIDE RECORDS SUMMARY | 2025-01-30 10:42 | XMS_ITS | Clinical Summary ---
Author Organization [facility] Address [address] [place] [address] Care Team Providers Care Furnace Mason Name Role Phone None, Md Primary Care [...] Screening (LURDES-2) 05/21/1976 Depression Assessment (PHQ-2) 05/21/1976 Pneumococcal Vaccine (1 of 2 - PCV) 05/21/1994 Adult Tetanus Booster 02/10/2022 02/11/2012 COVID-19 Vaccine ( - 2024-2 6 season) 2024 Influenza Vaccine (#1) 2024 12/08/2015 RSV Vaccines (1 - 1-dose 75+ series) 05/21/2050 Meningococcal B Vaccine Aged Out No l onger eligible based on patient's age to complete this topic Medical Devices Implanted Type Area Stamp Pad Maker Device Identifier Shelf Expiration Date Model / Serial / Lot Pltsynt-Clvr 02/27/68/6h 241.361 - [id number] Implanted:Qty : 1 on 11/27/2020 at [facility] Plate Left: Femur [employer]ynthes 241.361 / / Scr Syn Crtx S/T3.5/38 204.838 - [id number] Implanted:Qty : 2 on 11/27/2020 at [facility] Screw/Anc hor Left: Femur [employer]ynthes 204.838 / / Scr Evos Mini Bn 18mm 2.4mm - [id number] Implanted:Qty : 1 on 11/27/2020 by Ngozi Cotto MD at [facility] Screw/Anc hor Left: Femur [employer] [id number] / / Scr Evos Mini Bn 26mm 2.4mm - [id number] Implanted:Qty : 2 on 11/27/2020 by Ngozi Cotto MD at [facility] Screw/Anc hor Left: Femur [employer] [id number] / / Scr Evos Mini Bn 60mm 2.4mm - [id number] Implanted:Qty : 1 on 11/27/2020 by Ngozi Cotto MD at [facility] Screw/Anc hor Left: Femur [employer] [id number] / / Scr Evos Bn 46mm 2.7mm T8 Drvr - [id number] Implanted:Qty : 2 on 11/27/2020 by Ngozi Cotto MD at [facility] Screw/Anc hor Left: Femur [employer] [id number] / / Scr Evos Mini Bn 65mm 2.4mm - [id number] Implanted:Qty : 1 on 11/27/2020 by Ngozi Cotto MD at [facility] Screw/Anc hor Left: Femur [employer] [id number] / / Scrsynlckstdr v3.5/20 212.106 - [id number] Implanted:Qty : 1 on 11/27/2020 at [facility] Screw/Anc hor Left: Femur [employer]ynthes 212.106 / / Evos 2.4mm Flex Plate 8 Hole Implanted:Qty : 1 on 11/27/2020 by Ngozi Cotto MD at [facility] Left: Femur [employer] [id number] / / Explanted Type Area Stamp Pad Maker Device Identifier Shelf Expiration Date Model / Serial / Lot Plt Evos Mini Bn 70x7.5x1.4mm - [id number] Implanted:Ngozi Gaines MD (Quantity not on file) Explanted:Qty : 1 on 11/27/2020 by Ngozi Cotto MD at [facility] Plate Left: Femur [employer] [id number] / / Scr Evos Mini Bn 75mm 2.4mm - [id number] Implanted:Ngozi Gaines MD (Quantity not on file) Explanted:Qty : 1 on 11/27/2020 by Ngozi Cotto MD at [facility] Screw/Anc hor Left: Femur [employer] [id number] / / Insurance [facility] COMMERCIAL Advance Directives For more information, please contact: [phone] * Full Code (Latest Code Status on File) Date Activated Date Inactivated Comments 11/26/2020 9:08 PM 11/29/2020 2:19 AM Question Answer Comments How was code status determined? Physician Radha upd Care Teams Furnace Mason Relationship Specialty Start Date End Date Yash, PCP - General 11/26/20
--- OUTSIDE RECORDS SUMMARY | 2025-01-30 10:42 | XMS_ITS | Clinical Summary ---
Author Organization [facility] Address [address] [place] [id number] Care Team Providers Care Service Station Equipment Mechanic Name Role Phone Pcp, No Primary Care [...] on file Legal Sex Female 5:45 AM RESPIRATORY THERAPY DIRECTOR Gender Identity Not on file Sexual Orientation [...] Hepatitis C screening for age 18-79 05/21/1993 Hepatitis B series for 19+ (1 of 3 - 19+ 3-dose series) 05/21/1994 Depression screening for age 12+ 08/08/2018 08/08/2017, [...] 12/21/2015, Additional history exists COVID-19 vaccine series (1 - 2025- season) 2024 Influenza Vaccine (#1) 2024 12/08/2015 RSV vaccine for adults or (1 - 1-dose 75+ series) 05/21/2050 HIV for age 15-65 Completed 06/30/2008 Pneumococcal series for age 6-49 Aged Out No longer eligible based on patient's age to complete this topic Procedures Procedure Name Priority Date/Time Associated Diagnosis Comments LANG PATH THERAPIST THIN PREP PAP SCREEN IMAGED Routine 10/09/2020 12:00 PM CDT XR MAMMO BILAT SCREEN FFDM (IA) Routine 12/27/2015 4:39 PM CDT Visit for screening mammogram LIPID PANEL W REFLEX MEASURED LDL Routine 12/21/2015 11:24 AM CDT Screening for lipid disorders ANTI HIV 1/2 Routine 06/30/2008 3:02 PM CDT Candidal Vaginitis from Last 3 Months or Most Recently Relevant to Health Maintenance Results * LANG PATH THERAPIST THIN PREP PAP SCREEN IMAGED (10/09/2020 12:00 PM CDT) Case Report Gynecologic Cytology Report Case: [id number] Authorizing Provider: Vandana Duenas Collected: 10/09/2020 1200 MMD Ordering Location: [facility] Received: 10/11/2020 0819 First Screen: Baccam, Minie Rescreen: Nicole Mitchell Specimen: LANG PATH THERAPIST ThinPrep Vial Screening, Cervical/Vaginal 10/25/2020 4:19 PM CDT [facility] INTERPRETATION/ RESULT NEGATIVE FOR INTRAEPITHELIAL LESION OR MALIGNANCY (NIL) (none) 10/25/2020 4:19 PM CDT [facility] at 1619 CDT SPECIMEN ADEQUACY Satisfactory for evaluation Endocervical component present 10/25/2020 4:19 PM CDT [facility] HPV REQUEST HPV and PAP 10/25/2020 4:19 PM [facility]T [facility] Additional Information 10/25/2020 4:19 PM CDT [facility] Comment: Interpreted at [facility] [place] [facility] - [address], [place] [address] Automated Review Successful 10/25/2020 4:19 PM CDT [facility] Comment:Specimen processed s uccessfully by automated crm campaign manager device, [employer] Imaging System, [employer] ANCILLARY TESTING LANG PATH THERAPIST HPV Ordered, Please see separate report 10/25/2020 4:19 PM CDT [facility] Note The pap test is a [...] and malignant lesions. 10/25/2020 4:19 PM CDT [facility] Other (Cervical/Vagina l) 10/09/2020 12:00 PM CDT 10/11/2020 8:19 AM CDT us Vandana Duenas MD PATHOLOGY/CYTOLOGY Final Result [facility] [address] [place] [address], [place] * XR MAMMO BILAT SCREEN FFDM [...] - 199 mg/dL 12/21/2015 12:19 PM CDT [facility] TRIGLYCERIDES 110 <150 mg/dL 12/21/2015 12:19 PM CDT [facility] HDL CHOLESTEROL 50 >40 mg/dL 6 12:19 PM CDT [facility] NON-HDL CHOLESTEROL 188(H) <145 mg/dl 12/21/2015 12:19 PM CDT [facility] CHOL/HDL RATIO 4.76(H) <4.50 12/21/2015 12:19 PM CDT [facility] LDL CHOLESTEROL 166(H) <=130 mg/dL 12/21/2015 12:19 PM CDT [facility] PATIENT STATUS NOT GIVEN 12/21/2015 12:19 PM CDT [facility] Blood BLOOD SPECIMEN / Unknown Venipuncture / Unknown 12/21/2015 11:24 AM CDT 12/21/2015 11:24 AM CDT Lorena ARANDA CHEMISTRY Final Resu lt [facility] [address] [place] [address], [place] [phone] * ANTI HIV 1/2 (06/30/2008 3:02 PM CDT) ANTI HIV 1/2 Non-reacti ve [facility] Blood specimen (specimen) BLOOD SPECIMEN / Unknown 06/30/2008 3:02 PM CDT 06/30/2008 2:46 PM CDT Ngozi Ladd FOUNDRY TENDER SEND OUTS Final R esult [facility] [place] [address]IP [id number] [address] [place] [address] from Last 3 Months or Most Recently Relevant to Health Maintenance Advance Directives * Full Code (Latest Code Status on File) Date Activated Date Inactivated Comments 09/12/2011 4:18 PM 09/13/2011 2:44 PM * Full Code Date Activated Date Inactivated Comments 09/12/2011 8:24 AM 09/12/2011 4:18 PM Care Teams Service Station Equipment Mechanic Relationship Specialty Start Date End Date Pcp, No . PCP - General 04/02/18
--- NOTE | 2025-01-30 11:32 | ED.CHESTPAIN ---
HPI - Chest Pain General Time Seen by Provider: 11:32 Date Seen: 01/30/25 Chief Complaint: Chest Pain Stated Complaint: chest pain Time Seen by Provider: 01/30/25 11:22 Source: patient, RN notes reviewed, old records reviewed and manager intermediate Mode of arrival: ambulatory Limitations: no limitations History of Present Illness HPI narrative: This 49-year-old female is ambulatory into the ED with concern of left-sided chest pain. She has had symptoms for 6 days now, started last Friday. She feels short of breath, feels pain with breathing. In August she went to her doctor and felt like she was having hard time swallowing and difficulty breathing. She was given a prescription for nebulization which did help. She tried a neb with these current symptoms and it did not do anything. She has had no fevers or chills, no cough or cold symptoms. She feels that she can not sleep on her left side and is having difficulty breathing. Chest pain does not radiate, stays in [address] She did not go to work this past Friday, today is Friday, as she had chest pain and was not improving. She does have underlying diabetes, obesity, hypertension, hyperlipidemia. No known prior cardiac history or prior cardiac stress testing. She is not a smoker, has never used nicotine products. She denies any GI symptoms with this, no reflux symptoms, no nausea or vomiting. MD complaint: chest pain Related Data Home Medications ?Medication ?Instructions ?Recorded ?Confirmed ascorbic acid 30 mg-collagen, tab PO .QD 11/09/24 01/12/25 hydrolyzed 833.3 mg tablet (Collagen Skin Renewal) fluconazole 150 mg tablet 150 mg PO ONCE PRN 11/09/24 01/30/25 multivitamin 1 tab PO QDAY 11/09/24 01/30/25 ipratropium bromide 21 mcg (0.03 intranasal 01/30/25 %) nasal spray Previous Rx's ?Medication ?Instructions ?Recorded Blood Glucose Meter #1 ea 04/30/23 Diabetic Test Strips #100 ea 04/30/23 lancets 28 gauge (CareTouch Safety #100 ea 04/30/23 Lancets) chlorthalidone 25 mg tablet 12.5 mg (1/2 x 25 mg) PO QDAY #45 01/12/25 tabs potassium chloride 10 mEq 10 meq PO QDAY #90 tabs 01/12/25 tablet,extended release semaglutide 0.25 mg or 0.5 mg (2 0.25 mg (0.368 mL) subcut QWEEK #3 01/13/25 mg/3 mL) subcutaneous pen injector mL ipratropium bromide 21 mcg (0.03 2 spray intranasal BID #30 mL 01/30/25 %) nasal spray ketorolac 10 mg tablet 10 mg PO Q6H PRN pain #20 tabs 01/30/25 Allergies Allergy/AdvReac Type Severity Reaction Status Date / Time No Known Allergies Allergy Unknown Verified 01/30/25 11:02 Review of Systems Status of ROS Reports: 6 or more systems reviewed and unremarkable except as noted in History and below [facility] Medical History Cyst of ovary (2019) ?N83.209 - Unspecified ovarian cyst, unspecified side (ICD-10) Carpal tunnel syndrome on both sides ?G56.03 - Carpal tunnel syndrome, bilateral upper limbs (ICD-10) Hypokalemia ?E87.6 - Hypokalemia (ICD-10) Blurry vision ?H53.8 - Other visual disturbances (ICD-10) Weakness ?R53.1 - Weakness (ICD-10) Abnormal LFTs ?R79.89 - Other specified abnormal findings of blood chemistry (ICD-10) Obesity (BMI 30-39.9) ?E66.9 - Obesity, unspecified (ICD-10) Pre-diabetes ?R73.03 - Prediabetes (ICD-10) Left knee pain ?M25.562 - Pain in left knee (ICD-10) Fracture of right ankle, lateral malleolus ?S82.61XA - Displaced fracture of lateral malleolus of right fibula, initial encounter for closed fracture (ICD-10) Degenerative tear of lateral meniscus of left knee ?M23.301 - Other meniscus derangements, unspecified lateral meniscus, left knee (ICD-10) Cyst of left knee joint ?M25.862 - Other specified joint disorders, left knee (ICD-10) Osteoarthritis of left knee ?M17.12 - Unilateral primary osteoarthritis, left knee (ICD-10) Painful orthopaedic hardware ?T84.84XA - Pain due to internal orthopedic prosthetic devices, implants and grafts, initial encounter (ICD-10) Hx of diabetes mellitus ?Z86.39 - Personal history of other endocrine, nutritional and metabolic disease (ICD-10) Vitamin D deficiency ?E55.9 - Vitamin D deficiency, unspecified (ICD-10) Carpal tunnel syndrome of right wrist ?G56.01 - Carpal tunnel syndrome, right upper limb (ICD-10) Hypothyroidism ?E03.9 - Hypothyroidism, unspecified (ICD-10) Uterine leiomyoma ?D25.9 - Leiomyoma of uterus, unspecified (ICD-10) Hypertension ?I10 - Essential (primary) hypertension (ICD-10) Hyperlipidemia ?E78.5 - Hyperlipidemia, unspecified (ICD-10) History of hypokalemia ?Z86.39 - Personal history of other endocrine, nutritional and metabolic disease (ICD-10) Surgical History S/P left knee arthroscopy (07/12/24) ?Z98.890 - Other specified postprocedural states (ICD-10) History of reversal of tubal ligation (2006) ?Z98.890 - Other specified postprocedural states (ICD-10) History of open reduction and internal fixation (ORIF) procedure (11/27/20) ?Z98.890 - Other specified postprocedural states (ICD-10) History of myomectomy (09/12/11) ?Z98.890 - Other specified postprocedural states (ICD-10) History of section (1993) ?Z98.891 - History of uterine scar from previous surgery (ICD-10) Social History What is your current living situation?: I presently have a place to live Problems where you live: no known problems In the past 12 months, utilities in danger of being shut off: no In past 12 months, lack of transportation kept you from medical appts, meetings, work, or getting things needed for daily living: no In the past 12 mos, have been you worried that your food would run out before you had money to buy more?: never true In the past 12 mos, the food you bought just didn't last and you didn't have money to buy more?: never true Smoking Status: Never smoker Do you use any of these nicotine containing products: None Second hand tobacco smoke exposure: No How often do you have a drink containing alcohol: never How often do you have six or more drinks on one occasion: Never AUDIT-C Alcohol total score: 0 Non-prescribed substance use: denies use Caffeine: Yes How often does anyone, including family, friends and others, physically hurt you: never How often does anyone, including family, friends and others, insult or talk down to you: never How often does anyone, including family, friends and others, threaten you with harm: never How often does anyone, including family, friends and others, scream or curse at you: never Are you using contraception or practicing any form of control: No service: No Exam Const Vital Signs, click to edit/add: Vital Signs - 24 hr 01/30/25 10:42 01/30/25 11:39 01/30/25 11:45 Temperature 98.2 F Pulse Rate 63 64 Pulse Rate [Pulse Oximeter] 68 Respiratory Rate 16 11 L 13 Blood Pressure Blood Pressure [Right Upper Arm] 149/81 H Pulse Oximetry 98 97 95 Oxygen Delivery Method Room Air 01/30/25 12:00 01/30/25 12:03 01/30/25 12:15 Temperature Pulse Rate 62 65 73 Pulse Rate [Pulse Oximeter] Respiratory Rate 10 L 10 L 12 Blood Pressure 122/68 Blood Pressure [Right Upper Arm] Pulse Oximetry 96 96 97 Oxygen Delivery Method 01/30/25 12:30 01/30/25 12:32 01/30/25 12:45 Temperature Pulse Rate 62 62 76 Pulse Rate [Pulse Oximeter] Respiratory Rate 14 16 Blood Pressure 112/64 Blood Pressure [Right Upper Arm] Pulse Oximetry 96 95 94 Oxygen Delivery Method 01/30/25 13:00 01/30/25 13:02 Temperature Pulse Rate 57 L 62 Pulse Rate [Pulse Oximeter] Respiratory Rate 19 18 Blood Pressure 123/72 Blood Pressure [Right Upper Arm] Pulse Oximetry 95 96 Oxygen Delivery Method This 49-year-old female is alert, interactive, no apparent distress. She is seen in exam room 6, lying in the bed appearing comfortable. Speech seems normal, no hoarseness, no stridor. Pupils are equal round reactive, sclera clear, symmetrical facial function. Neck is supple, no jugular venous distension, no masses, no adenopathy. Lungs are clear, good air entry, no wheeze or crackles, no tachypnea, no accessory muscle use, she sits up easily in bed on her own. CV regular rate and rhythm, no murmur, normal S1-S2, no S3-S4. Abdomen is soft, nontender, non distended, organomegaly, rebound or guarding. Patient was ambulatory in the ED of her own accord. She has no pretibial edema, no lower extremity edema noted. No calf tenderness. Documenting provider has reviewed patient's vital signs: yes Course Course ED Course: Nursing staff has patient appropriately on cardiac monitoring and pulse oximetry, had obtained an EKG in triage. I did review with her that her EKG looks normal. Her cardiac monitoring right now showing normal sinus rhythm, she is not hypoxic, oxygenation is in the upper 90s with a good waveform. We will continue to monitor for arrhythmia and hypoxia while here on this monitoring. Will look at a portable chest x-ray. Did discuss that we will be doing a D-dimer, if this is positive, we will need to look at chest CT imaging to rule out pulmonary emboli. Will obviously look at heart enzyme markers. She has had symptoms for 6 days now, if a solitary troponin is normal, it is very unlikely that this is cardiac. There is some pleuritic change to this, it certainly could be pleurisy. Will look at infectious etiology including atypical presentation of viral respiratory infections. Will do the triple viral swab. Will get a full complement of labs. If her highly sensitive troponin is normal, may try some Toradol with her. Prior kidney functions appear normal in her chart, last done on January 07 of this year. Her hemoglobin A1c was 5.6% at that time and quite well controlled diabetes. Reevaluation(s) Time of Reevaluation #1: 12:57 Reevaluation #1: Patient's D-dimer and highly sensitive troponin are normal. Will try a dose of IV Toradol to see if it helps her symptoms while we await for her proBNP and triple viral swab to come back. Time of Reevaluation #2: 13:14 Reevaluation #2: Reviewed with patient that her labs are all normal. There is no evidence of any cardiac disease, no thromboembolic disease, no infection. She feels the Toradol did help. She likely has some component of pleurisy, this sometimes can be triggered by viruses. We did review this. We will give her oral Toradol. She brought up on her phone ipratropium nasal spray, asked if I could refill that. She states at times she has difficulty breathing due to her nasal congestion, this has helped. I am certainly willing to refill this for her. She also last about getting her a blood pressure cough, reviewed with her that this is really out of my expertise out of the ER, refer her back to her primary provider. She is leaving for [place] and she is worried she is not going to be able to breathe on the plane. Vital Signs Vital signs: Initial Vital Signs Temperature 98.2 F 01/30/25 10:42 Temperature Source Temporal Artery Scan 01/30/25 10:42 Pulse Rate 68 01/30/25 10:42 Respiratory Rate 16 01/30/25 10:42 Blood Pressure 149/81 H 01/30/25 10:42 Blood Pressure Mean 103 01/30/25 10:42 Blood Pressure Position Sitting 01/30/25 10:42 Pulse Oximetry 98 01/30/25 10:42 Oxygen Delivery Method Room Air 01/30/25 10:42 Vital Signs Temperature 98.2 F 01/30/25 10:42 Pulse Rate 68 01/30/25 10:42 Respiratory Rate 16 01/30/25 10:42 Blood Pressure 149/81 H 01/30/25 10:42 Pulse Oximetry 98 01/30/25 10:42 Oxygen Delivery Method Room Air 01/30/25 10:42 Temperature 98.2 F 01/30/25 10:42 Pulse Rate 62 01/30/25 13:02 Respiratory Rate 18 01/30/25 13:02 Blood Pressure 123/72 01/30/25 13:02 Pulse Oximetry 96 01/30/25 13:02 Oxygen Delivery Method Room Air 01/30/25 10:42 Medications Administered Medications: Discontinued Medications Generic Name Dose Route Start Last Admin Trade Name Freq PRN Reason Stop Dose Admin Ketorolac Tromethamine 15 mg 01/30/25 12:56 01/30/25 13:05 Ketorolac 15 Mg/Ml Inj IVP 01/30/25 12:57 15 mg ONCE ONE Administration MDM - Chest Pain Lab Data Labs: Lab Results 01/30/25 01/30/25 Range/Units 11:40 12:00 WBC 5.18 (4.50-11.00) K/uL RBC 4.86 (4.00-5.20) m/uL Hgb 14.1 (12.0-16.0) gm/dL Hct 43.4 (33.0-51.0) % MCV 89 (80-100) fL MCH 29 (26-34) pg MCHC 33 (32-36) gm/dL RDW Coeff of Misbah 13.5 (11.5-15.5) % Plt Count 141 (140-440) K/uL Neut % (Auto) 57.6 (42.0-72.0) % Lymph % (Auto) 35.3 (20-44) % [place] % (Auto) 5.0 (0.0-11.0) % Eos % (Auto) 1.5 (0.0-7.0) % Baso % (Auto) 0.6 (0.0-3.0) % Neut # (Auto) 2.98 (1.7-7.0) K/uL Lymph # (Auto) 1.83 (0.90-2.90) K/uL [place] # (Auto) 0.30 (0.00-0.90) K/UL Eos # (Auto) 0.08 (0.00-0.50) K/uL Baso # (Auto) 0.03 (0.00-0.30) K/uL Abs Immat Gran (auto) 0.00 (0.00-0.30) K/uL Imm/Tot Granulo (auto) 0.0 % D-Dimer Quant (PE/DVT) 0.48 (0.00-0.50) ug/ml Sodium 138 (135-149) mmol/L Potassium 3.6 (3.6-5.1) mmol/L Chloride 102 (96-114) mmol/L Carbon Dioxide 25 (20-32) mmol/L Anion Gap 11 (7-15) mEq/L BUN 11 (5-24) mg/dL Creatinine 0.7 (0.5-1.5) mg/dL Estimated Creat Clear 69.83 Estimated GFR 106 ml/min Glucose 89 (60-115) mg/dL Lactate 0.9 (0.5-1.9) mmol/L Calcium 9.0 (8.4-10.6) mg/dL Total Bilirubin 0.5 (0.1-1.5) mg/dL AST 24 (12-35) U/L ALT 33 (4-35) U/L Alkaline Phosphatase 97 (40-150) U/L POC Troponin I High Sensi < 2.9 L (2.9-13.0) pg/mL C-Reactive Protein < 0.5 L (0.5-1.0) mg/dL NT-Pro-B Natriuret Pep < 20 (See Note) pg/mL Total Protein 7.8 (6.0-8.3) g/dL Albumin 4.5 (3.3-5.0) g/dL SARS-CoV-2 (PCR) Negative SARS-CoV-2 (Negative) Influenza Type A (PCR) Negative PCR FLU A (Negative) Influenza Type B (PCR) Negative PCR FLU B (Negative) RSV (PCR) Negative PCR RSV (Negative) Imaging Data Chest x-ray: Attestation: I have reviewed the pertinent imaging results. My impression: I have reviewed her portable chest x-ray and on my preliminary review, do not appreciate any infiltrate, no pleural effusion, no pneumothorax, no cardiomegaly. Await Radiology over-read. Radiologist's impression: Patient: DELIA RAYMOND Facility:?[facility] Patient ID:?[id number] Site Patient ID:?[id number]. Site :?[id number] Study:?XRay-Chest PORTABLE-01/30/2025 11:53:15 AM Ordering Physician:Jackie Craven Final Report: INDICATION: Left pleuritic chest pain. TECHNIQUE: Chest portable AP semi-upright. FINDINGS: The cardiomediastinal silhouette, lung parenchyma, pulmonary vasculature and pleural surfaces are all normal in appearance. The bony thorax appears intact. IMPRESSION: Negative study. Dictated by oJse Ge MD @ 01/30/2025 12:09:07 PM (Electronic Signature) ECG Data Attestation: I personally reviewed and interpreted this ECG as follows: (Normal sinus rhythm, normal EKG. Rate 64 beats per minute. QT corrected 410 milliseconds. Isolated flipped T-waves lead V1 without any ST segment change. No evidence of ischemia or infarct.) ECG interpretation date: 01/30/25 ECG interpretation time: 11:32 Prior ECG tracings: not available for review Discharge Plan Discharge Clinical Impression: Pleurisy Patient Disposition: Home, Self-Care Condition: Stable Instructions: Pleurisy (ED) Additional Instructions: Use Tylenol 1000 mg 3 times a day baseline for pain for the next 1-2 weeks. Can use the Toradol per prescription for additional pain control. Once the Toradol is gone, can use ibuprofen if needed. Should you develop increasing shortness of breath, difficulty breathing, have cough or fever develop with these symptoms, do need to seek re-evaluation. Anticipate that you will start feeling better within the next week, pleurisy typically is self-limited and usually improves within 2 weeks. Did refill your ipratropium bromide nasal spray as requested. Please contact your clinic/primary care provider for blood pressure cuff request. Activity Level: No Restrictions Prescriptions: New ketorolac 10 mg tablet 10 mg PO Q6H PRN (Reason: pain) Qty: 20 0RF Rx Instructions: maximum total duration of 5 days from all oral, intranasal, or parenteral formulations ipratropium bromide 21 mcg (0.03 %) spray,non-aerosol 2 spray intranasal BID Qty: 30 0RF Rx Instructions: administer into each nostril No Action Collagen Skin Renewal 30-833.3 mg tablet PO .QD fluconazole 150 mg tablet 150 mg PO ONCE PRN Rx Instructions: as a single dose, may repeat in 7 days if not resolved. multivitamin Tablet 1 tab PO QDAY chlorthalidone 25 mg tablet 12.5 mg PO QDAY Qty: 45 3RF potassium chloride 10 mEq tablet extended release 10 meq PO QDAY Qty: 90 3RF (DME) Blood Gl[facility]eter [facility] See Rx Instructions .ROUTE .MEDSUPPLY Qty: 1 0RF Rx Instructions: As directed (DME) Diabetic Test Strips [facility] See Rx Instructions .ROUTE .MEDSUPPLY Qty: 100 3RF Rx Instructions: bid prn (DME) lancets [CareTouch Safety Lancets] 28 gauge misc See Rx Instructions .ROUTE .MEDSUPPLY Qty: 100 3RF Rx Instructions: As directed ipratropium bromide 21 mcg (0.03 %) spray,non-aerosol INTRANASAL Patient Comments: [NO ORIGINAL SIG] semaglutide 0.25 mg or 0.5 mg (2 mg/3 mL) pen injector 0.25 mg subcut QWEEK Qty: 3 0RF Rx Instructions: for 4 weeks Follow Up/Referrals: Nilay Ruiz MD [Primary Care Provider, Family Practice] Stand Alone Forms: MyHealth Info Instructions
--- NOTE | 2025-01-30 11:40 | CRLHL7_ITS ---
For Patients: As a result of the Century Cures Act, medical imaging exams and procedure reports are released immediately into your electronic medical record. You may view this report before your referring provider. If you have questions, please contact your health care provider. INDICATION: Left pleuritic chest pain. TECHNIQUE: Chest portable AP semi-upright. FINDINGS: The cardiomediastinal silhouette, lung parenchyma, pulmonary vasculature and pleural surfaces are all normal in appearance. The bony thorax appears intact. IMPRESSION: Negative study. Dictated by Jose Ge MD @ 01/30/2025 12:09:07 PM (Electronically Signed)
[2025-01-30 12:21] LABS: Lactate* 0.9 mmol/L (0.5-1.9)
[2025-01-30 12:22] LABS: Hematocrit* 43.4 % (33.0-51.0); Hemoglobin* 14.1 gm/dL (12.0-16.0); Immature Granulocytes Abs Auto 0.00 K/uL (0.00-0.30); Immature Granulocytes Pct Auto 0.0 %; Lymphocytes Absolute Auto 1.83 K/uL (0.90-2.90); Mean Corpuscular HGB Conc 33 gm/dL (32-36); Mean Corpuscular Hemoglobin 29 pg (26-34); Mean Corpuscular Volume 89 fL (80-100); RDW Coefficient of Variation % 13.5 % (11.5-15.5); Red Blood Count* 4.86 m/uL (4.00-5.20); White Blood Count* 5.18 K/uL (4.50-11.00)
[2025-01-30 12:37] LABS: Slide Review Reflex Yes
[2025-01-30 12:39] LABS: Albumin* 4.5 g/dL (3.3-5.0); Chloride* 102 mmol/L (96-114); Sodium* 138 mmol/L (135-149)
[2025-01-30 12:40] LABS: Potassium* 3.6 mmol/L (3.6-5.1)
[2025-01-30 12:42] LABS: Blood Urea Nitrogen* 11 mg/dL (5-24); Creatinine* 0.7 mg/dL (0.5-1.5); Est. Creatinine Clearance* 69.83; Estimated Glomerular Filt Rate 106 ml/min
[2025-01-30 12:43] LABS: Alanine Aminotransferase* 33 U/L (4-35); Alkaline Phosphatase* 97 U/L (40-150); Anion Gap 11 mEq/L (7-15); Aspartate Amino Transferase* 24 U/L (12-35); Bilirubin Total* 0.5 mg/dL (0.1-1.5); Calcium* 9.0 mg/dL (8.4-10.6); Carbon Dioxide* 25 mmol/L (20-32); Glucose* 89 mg/dL (60-115); Total Protein* 7.8 g/dL (6.0-8.3)
[2025-01-30 12:48] LABS: D Dimer Quantitative* 0.48 ug/ml (0.00-0.50)
[2025-01-30 12:58] LABS: NT Pro B Type NatriureticPept* < 20 pg/mL (See Note)
[2025-01-30 13:03] LABS: PCR FLU A Negative PCR FLU A (Negative); PCR FLU B Negative PCR FLU B (Negative); PCR RSV Negative PCR RSV (Negative); SARS PCR* Negative SARS-CoV-2 (Negative)
[2025-01-30 13:41] LABS: Slide Review Acceptable Review (Acceptable)
== END 2025-01-30 13:48 | disposition home or self-care (01) ==
PROVIDERS: Emergency Provider Family Medicine; PCP Family Medicine
DX: R09.1 Pleurisy (principal)
CPT/HCPCS: 36415; 71045; 80053; 83605; 83880; 84484; 85025; 85379; 86140; 87631; 93005; 94761; 96374; 99284; 99285; J1885